=== PATIENT | female | born 1990 | race Caucasian/White ===

== ENCOUNTER 2016-05-29 20:54 | Emergency (ER) | payer MEDICAID ==
[2016-05-29 22:01] VITALS: BP 118/72
--- NOTE | 2016-05-29 22:03 | ER Document Report ---
ED Medical Screen (RME) - General Stated Complaint: VAGINAL BLEEDING Mode of Arrival: Ambulatory Information source: Patient Notes: 25 y/o F presents to ED c/o heavy vaginal bleeding over the last 3 days. States has hx of PCOS and had not had period for three months until 3 days ago when she began her period. Also reports hx of genital herpes and had onset of flare- up 3 days ago. Also states her sexual partner recently informed her he tested positive for gonorrhea but she has not been tested/treated yet. I have greeted and performed a rapid initial assessment of this patient. A comprehensive ED assessment and evaluation of the patient, analysis of test results and completion of the medical decision making process will be conducted by additional ED providers. TRAVEL OUTSIDE OF THE [place] IN LAST 30 DAYS: No - Related Data Allergies/Adverse Reactions: No Known Allergies Allergy (Unverified 09/30/15 19:48) Past Medical History Pulmonary Medical History: Reports: Hx Asthma Past Surgical History: Reports: Hx Appendectomy, Hx Cholecystectomy, Hx Tonsillectomy - Immunizations Hx Diphtheria, Pertussis, Tetanus Vaccination: Yes Physical Exam - General General appearance: Appears well, Alert In distress: None - Respiratory Respiratory status: No respiratory distress
[2016-05-30 01:55] LABS: ABSOLUTE EOSINOPHILS # (AUTO) 0.1 10^3/uL (0.0-0.6); ABSOLUTE LYMPHOCYTES (AUTO) 4.4 10^3/uL (0.5-4.7); ABSOLUTE MONOCYTES (AUTO) 0.8 10^3/uL (0.1-1.4); ABSOLUTE NEUT (AUTO) 6.5 10^3/uL (1.7-8.2); BASOPHILS % (AUTO) 0.3 % (0-2); EOSINOPHILS % (AUTO) 1.2 % (0-6); HEMATOCRIT 40.3 % (36.0-47.0); HGB HCT DIFFERENCE 1.7; LYMPHOCYTES % (AUTO) 37.2 % (13-45); MEAN CORPUSCULAR HEMOGLOBIN 29.9 pg (27.0-33.4); MEAN CORPUSCULAR HGB CONC 34.8 g/dL (32.0-36.0); MEAN CORPUSCULAR VOLUME 86 fl (80-97); MONOCYTES % (AUTO) 6.6 % (3-13); RED BLOOD COUNT 4.69 10^6/uL (3.72-5.28); RED CELL DISTRIBUTION WIDTH 13.3 % (11.5-14.0); SEGMENTED NEUTROPHILS % (AUTO) 54.7 % (42-78); WHITE BLOOD COUNT 11.9 10^3/uL (4.0-10.5)
[2016-05-30 02:08] LABS: ALANINE AMINOTRANSFERASE 39 U/L (9-52); ALBUMIN 4.1 g/dL (3.5-5.0); ALKALINE PHOSPHATASE 52 U/L (38-126); ANION GAP 12 (5-19); ASPARTATE AMINO TRANSFERASE 19 U/L (14-36); BILIRUBIN,TOTAL 0.4 mg/dL (0.2-1.3); BLOOD UREA NITROGEN 11 mg/dL (7-20); CALCIUM 9.9 mg/dL (8.4-10.2); CARBON DIOXIDE 26 mmol/L (22-30); CHLORIDE 105 mmol/L (98-107); CREATININE RESULT 0.74 mg/dL (0.52-1.25); GLUCOSE 131 mg/dL (75-110); POTASSIUM 4.1 mmol/L (3.6-5.0); SODIUM 142.9 mmol/L (137-145); TOTAL PROTEIN 7.7 g/dL (6.3-8.2)
[2016-05-30 02:18] LABS: APPEARANCE,URINE CLOUDY; BILIRUBIN,URINE NEGATIVE (NEGATIVE); GLUCOSE, URINE NEGATIVE (NEGATIVE); KETONES,URINE NEGATIVE (NEGATIVE); LEUKOCYTE ESTERASE,URINE LARGE (NEGATIVE); NITRITE,URINE NEGATIVE (NEGATIVE); PROTEIN,URINE 30 mg/dL (NEGATIVE); URINE SPECIFIC GRAVITY 1.032; UROBILINOGEN,URINE NEGATIVE mg/dL (<2.0)
--- NOTE | 2016-05-30 02:32 | ER Document Report ---
ED GI/ - General Chief Complaint: STD Exposure Stated Complaint: VAGINAL BLEEDING Time seen by provider: 02:21 Mode of Arrival: Ambulatory Information source: Patient Notes: 25-year-old female presents to ED for complaint of heavy vaginal bleeding over the last 3 days. She states she has a history of PCOS and has not had a period in 3 months until 3 days ago. Has hx of genital herpes with flare up started 3 days ago. States her sexual partners told her that he has gonorrhea and she has not been tested or treated. TRAVEL OUTSIDE OF THE [place] IN LAST 30 DAYS: No - HPI Patient complains to provider of: Pelvic pain, Vaginal bleeding, Vaginal discharge, Vaginal pain Onset: Other - 3 days ago Timing/Duration: Persistent Quality of pain: Achy, Burning Severity at maximum: Severe Severity in ED: Severe Pain Level: 5 Location: Pelvis, Vaginal Vaginal bleeding (Compared to normal period): Heavier, Passing clots LMP: 3 months ago and then started 3 days ago Associated symptoms: Nausea, Vaginal discharge, Other - Bodyaches pelvic pain and vaginal bleeding with vaginal pain Exacerbated by: Denies Relieved by: Denies Similar symptoms previously: Yes Recently seen / treated by doctor: No - Related Data Allergies/Adverse Reactions: No Known Allergies Allergy (Verified 05/29/16 22:01) Past Medical History - General Information source: Patient - Social History Smoking Status: Former Smoker Cigarette use (# per day): No Chew tobacco use (# tins/day): No Smoking Education Provided: No Frequency of alcohol use: None Drug Abuse: None Occupation: none Lives with: Alone - With children Family History: Arthritis, CAD, COPD, CVA, DM, Hyperlipidemia, Hypertension, Malignancy, Thyroid Disfunction Patient has suicidal ideation: No Patient has homicidal ideation: No - Past Medical History Cardiac Medical History: Reports: Hx Hypercholesterolemia Pulmonary Medical History: Reports: Hx Asthma, Hx Bronchitis EENT Medical History: Reports: None Neurological Medical History: Reports: None Endocrine Medical History: Reports: Hx Diabetes Mellitus Type 2 Renal/ Medical History: Reports: Hx Ovarian Cysts, Hx Pelvic Inflammatory Disease, Other - Genital herpes Malignancy Medical History: Reports: None GI Medical History: Reports: None Musculoskeltal Medical History: Reports None Skin Medical History: Reports None Psychiatric Medical History: Reports: Hx Anxiety, Hx Depression Traumatic Medical History: Reports: None Infectious Medical History: Reports: None Past Surgical History: Reports: Hx Adenoidectomy, Hx Appendectomy, Hx Cholecystectomy, Hx Myringotomy, Hx Oral Surgery - [place] teeth, Hx Tonsillectomy, Other - Foreign body removed from right eye - Immunizations Hx Diphtheria, Pertussis, Tetanus Vaccination: Yes Review of Systems - Review of Systems Constitutional: No symptoms reported EENT: No symptoms reported Cardiovascular: No symptoms reported Respiratory: No symptoms reported Gastrointestinal: No symptoms reported Genitourinary: No symptoms reported Female Genitourinary: Heavy/abnormal periods, Vaginal discharge, Vaginal bleeding, Other - Vaginal pain Musculoskeletal: No symptoms reported, Other - Bodyaches Skin: No symptoms reported Hematologic/Lymphatic: No symptoms reported Neurological/Psychological: No symptoms reported -: Yes All other systems reviewed and negative Physical Exam - Vital signs Vitals: Temp Pulse Resp BP Pulse Ox 98.1 F 72 18 118/72 99 05/29/16 21:57 05/29/16 21:57 05/29/16 21:57 05/29/16 21:57 05/29/16 21:57 Interpretation: Normal - General General appearance: Appears well, Alert - HEENT Head: Normocephalic, Atraumatic Eyes: Normal Pupils: PERRL Ears: Normal, Tragus tenderness Tympanic membrane: Normal Sinus: Normal Nasal: Normal Mouth/Lips: Normal Mucous membranes: Normal Pharynx: Normal Neck: Normal - Respiratory Respiratory status: No respiratory distress Chest status: Nontender Breath sounds: Normal Chest palpation: Normal - Cardiovascular Rhythm: Regular Heart sounds: Normal auscultation Murmur: No - Abdominal Inspection: Normal Distension: No distension Bowel sounds: Normal Tenderness: Nontender Organomegaly: No organomegaly - Genitourinary External exam: Normal. No: Lesions Speculum exam: Cervix closed, Vaginal discharge Vaginal bleeding: Mild Bimanuel exam: Normal - Back Back: Normal, Nontender - Extremities General upper extremity: Normal inspection, Nontender, Normal color, Normal ROM , Normal temperature General lower extremity: Normal inspection, Nontender, Normal color, Normal ROM , Normal temperature, Normal weight bearing. No: Dhara's sign - Neurological Neuro grossly intact: Yes Cognition: Normal Orientation: AAOx4 Marielle Coma Scale Eye Opening: Spontaneous Marielle Coma Scale Verbal: Oriented [place] Coma Scale Motor: Obeys Commands [place] Coma Scale Total: 15 Speech: Normal Motor strength normal: LUE, RUE, LLE, RLE Sensory: Normal - Psychological Associated symptoms: Normal affect, Normal mood - Skin Skin Temperature: Warm Skin Moisture: Dry Skin Color: Normal Course - Re-evaluation Re-evalutation: 05/30/16 03:38 Discussed results with patient patient treated with Rocephin and azithromycin and Macrobid. Patient discharged home with a prescription for Macrobid. Very minimal bleeding noted when I did her pelvic exam. 05/30/16 06:30 Attempted to call patient positive results of gonorrhea but her phone is disconnected. Patient had been treated already with Rocephin and azithromycin for the possibility of a positive gonorrhea as her boyfriend was tested positive. - Vital Signs Vital signs: Temp Pulse Resp BP Pulse Ox 98.1 F 72 18 118/72 99 05/29/16 21:57 05/29/16 21:57 05/29/16 21:57 05/29/16 21:57 05/29/16 21:57 - Laboratory Result Diagrams: 05/30/16 01:43 05/30/16 01:43 Laboratory results interpreted by me: 05/30/16 05/30/16 05/30/16 01:43 01:43 01:43 WBC 11.9 H Glucose 131 H Urine Protein 30 H Urine Blood LARGE H Ur Leukocyte Esterase LARGE H N.gonorrhoeae DNA (PCR) 05/30/16 02:39 WBC Glucose Urine Protein Urine Blood Ur Leukocyte Esterase N.gonorrhoeae DNA (PCR) DETECTED H Discharge - Discharge Clinical Impression: Vaginal pain Vaginitis Qualifiers: Chronicity: acute Qualified Code(s): N76.0 - Acute vaginitis UTI (urinary tract infection) Qualifiers: Urinary tract infection type: site unspecified Hematuria presence: with hematuria Qualified Code(s): N39.0 - Urinary tract infection, site not specified Condition: Stable Disposition: HOME, SELF-CARE Additional Instructions: URINARY TRACT INFECTION: Your evaluation indicates that you have a urinary tract infection. This is due to germs growing in the bladder. This is a common problem. This infection usually responds quickly to antibiotics. Your antibiotic should be taken exactly as prescribed. Drink plenty of fluids -- three to four quarts a day. Occasionally, a bladder anesthetic will be prescribed to help stop the feeling of urgency until the antibiotic has a chance to clear the infection. This may cause your urine to be dark orange. Certain urine infections require a culture. If the doctor obtained a culture, the results will be back in two days. You should call to see if a change in treatment is needed. A repeat urinalysis after you finish treatment is often recommended. The physician will let you know if further testing is required. Call the doctor if you develop fever, chills, flank pain, inability to urinate, or blood in the urine. VAGINITIS: Your exam shows that you have vaginitis, a vaginal infection. The infection can be caused by a many different organisms, including trichomonas or Gardnerella. The usual symptoms are vaginal irritation and discharge. The treatment is usually antibiotics such as Flagyl. Laboratory tests can determine which germ is responsible. Use the medication as prescribed. Because this infection can be transmitted sexually, your sexual partner may need to be checked and treated also. If your physician has not discussed this with you, please check before resuming sexual relations. If a culture shows gonorrhea or chlamydia, the infection must be reported to the health department. Call the doctor if you develop pelvic pain, fever, or problems with urination, or if you don't improve as expected. Rocephin You have been given an injection of an antibiotic called Rocephin ( ceftriaxone). Sometimes the injection must be combined with antibiotic pills. For some infections, such as an uncomplicated ear infection, Rocephin provides all the antibiotic that's needed. The antibiotic will be in your body for about two days. For serious infections, we usually repeat doses of Rocephin daily. Side effects are very unusual following a shot. Women may develop vaginal yeast infections, and babies can get yeast (thrush) in the mouth following the use of antibiotics. Contact your physician if you have symptoms with this medication. Allergy to this antibiotic can result in hives, wheezing, faintness, or itching. If symptoms of allergy occur, call the doctor at once. AZITHROMYCIN: Azithromycin (Zithromax) is a broad spectrum antibiotic in the same class as erythromycin. It can treat a variety of bacterial infections, but is most frequently used for respiratory infections. Azithromycin is extremely long-lasting. It accumulates in body tissues and continues to kill bacteria for many days. In order to improve absorption, Azithromycin should be taken at least one hour before or two hours after a meal. It does not have the same strong tendency to upset the stomach as erythromycin and is usually very well tolerated. Patients who have had a rash or other true allergic reactions to erythromycin should not take this medication. Call if you develop gastrointestinal distress, severe diarrhea, rash, hives, itching, or shortness of breath. NITROFURANTOIN (MACRODANTIN, MACROBID): You have received a prescription for nitrofurantoin (Macrodantin). This antibiotic is used for urinary tract infections. Women who are or nursing should notify the physician before taking this medicine. If you have ever had a problem caused by this medication in the past, be sure the physician is aware of it. Common side effects of this medicine include nausea, vomiting, or decreased appetite. Notify your physician if these side effects become severe. Immediately stop this medicine and call the physician if you develop cough , shortness of breath, chest pain, weakness, jaundice (yellow color of the skin and whites of the eyes), or a skin rash. FOLLOW-UP CARE: If you have been referred to a physician for follow-up care, call the physician s office for an appointment as you were instructed or within the next two days. If you experience worsening or a significant change in your symptoms, notify the physician immediately or return to the Emergency Department at any time for re-evaluation. Prescriptions: Nitrofurantoin/Nitrofuran Mac [Macrobid 100 mg Capsule] 1 tab PO BID #20 capsule Forms: Return to School Referrals: INDIO MARTINS MD [Primary Care Provider] - Follow up as needed
[2016-05-30] MEDS ORDERED: AZITHROMYCIN 250 MG TABLET PO ONE (02:42)
[2016-05-30] MEDS ORDERED: LIDOCAINE 1% INJ-PF (10 MG/ML) 30 ML SDV INJ ONE (02:42)
[2016-05-30] MEDS ORDERED: CEFTRIAXONE INJ 250 MG VIAL IM ONE (02:42)
[2016-05-30] MEDS ORDERED: IBUPROFEN 800 MG TABLET PO ONE (02:42)
[2016-05-30] MEDS ORDERED: NITROFURANTOIN MONOHYD/M-CRYST 100 MG CAPSULE PO ONE (03:30)
[2016-05-30 04:17] LABS: CHLAM PCR NOT DETECTED (NOT DETECT)
== END 2016-05-30 03:46 | disposition home or self-care (01) ==
LOC: ER 20:54
DX: A54.02 Gonococcal vulvovaginitis, unspecified (principal); N39.0 Urinary tract infection, site not specified; R31.9 Hematuria, unspecified; E28.2 Polycystic ovarian syndrome; R10.2 Pelvic and perineal pain; A60.00 Herpesviral infection of urogenital system, unspecified; Z87.891 Personal history of nicotine dependence; J45.909 Unspecified asthma, uncomplicated; E11.9 Type 2 diabetes mellitus without complications
CPT/HCPCS: 99284; 96372; 36415; 87086; 87210; 85025; 81025; 87088; 80053; 81001; 87491; 87591; Q0144; J3490 ×2; J0696

== ENCOUNTER → 2016-09-14 | Outpatient (CLI) | payer MEDICAID ==
--- NOTE | 2016-09-14 20:31 | RADIOLOGY REPORT (SQ) ---
EXAM DESCRIPTION: ACUTE ABDOMEN SERIES COMPLETED DATE/TIME: 09/14/2016 8:10 pm REASON FOR STUDY: Generalized abdominal pain R10.84 GENERALIZED ABDOMINAL PAIN R10.84 GENERALIZED ABDOMINAL PAIN R10.84 GENERALIZED ABDOMINAL PAIN COMPARISON: None. NUMBER OF VIEWS: Three views. TECHNIQUE: Frontal chest, supine abdomen and upright/decubitus abdomen radiographic images acquired. LIMITATIONS: None. FINDINGS: CHEST: Lungs clear of infiltrates. FREE AIR: None. No abnormal gas collections. BOWEL GAS PATTERN: Nonobstructive pattern. No dilated loops or air fluid levels. CALCIFICATIONS: No suspicious calcifications. HARDWARE: Surgical clips are identified in the right upper quadrant SOFT TISSUES: No gross mass or suggestion of organomegaly. BONES: No acute fracture. No worrisome bone lesions. OTHER: No other significant finding. IMPRESSION: NO RADIOGRAPHIC EVIDENCE FOR ACUTE ABDOMINAL DISEASE. TECHNICAL DOCUMENTATION: JOB ID: [id number] [employer]- All Rights Reserved
== END ==
LOC: RAD 19:18
PROVIDERS: ATTEND Nurse Practitioner Acute Care
DX: R10.84 Generalized abdominal pain (principal)
CPT/HCPCS: 74022

== ENCOUNTER → 2016-09-14 | Outpatient (CLI) | payer MEDICAID ==
[2016-09-14 20:04] LABS: ABSOLUTE BASOPHILS # (AUTO) 0.1 10^3/uL (0.0-0.2); ABSOLUTE EOSINOPHILS # (AUTO) 0.1 10^3/uL (0.0-0.6); ABSOLUTE LYMPHOCYTES (AUTO) 4.1 10^3/uL (0.5-4.7); ABSOLUTE NEUT (AUTO) 9.9 10^3/uL (1.7-8.2); BASOPHILS % (AUTO) 0.9 % (0-2); EOSINOPHILS % (AUTO) 0.4 % (0-6); HEMATOCRIT 47.3 % (36.0-47.0); HEMOGLOBIN 15.7 g/dL (12.0-15.5); HGB HCT DIFFERENCE -0.2; LYMPHOCYTES % (AUTO) 26.9 % (13-45); MEAN CORPUSCULAR HEMOGLOBIN 28.8 pg (27.0-33.4); MEAN CORPUSCULAR HGB CONC 33.1 g/dL (32.0-36.0); MEAN CORPUSCULAR VOLUME 87 fl (80-97); MONOCYTES % (AUTO) 6.5 % (3-13); RED BLOOD COUNT 5.44 10^6/uL (3.72-5.28); RED CELL DISTRIBUTION WIDTH 14.7 % (11.5-14.0); SEGMENTED NEUTROPHILS % (AUTO) 65.3 % (42-78); WHITE BLOOD COUNT 15.1 10^3/uL (4.0-10.5)
[2016-09-14 20:05] LABS: APPEARANCE,URINE CLOUDY; BILIRUBIN,URINE NEGATIVE (NEGATIVE); GLUCOSE, URINE NEGATIVE (NEGATIVE); KETONES,URINE 20 mg/dL (NEGATIVE); LEUKOCYTE ESTERASE,URINE NEGATIVE (NEGATIVE); NITRITE,URINE NEGATIVE (NEGATIVE); PROTEIN,URINE NEGATIVE (NEGATIVE); URINE SPECIFIC GRAVITY 1.019; UROBILINOGEN,URINE NEGATIVE mg/dL (<2.0)
[2016-09-14 20:19] LABS: ALANINE AMINOTRANSFERASE 40 U/L (9-52); ALKALINE PHOSPHATASE 57 U/L (38-126); ANION GAP 16 (5-19); ASPARTATE AMINO TRANSFERASE 23 U/L (14-36); BILIRUBIN,DIRECT 0.3 mg/dL (0.0-0.4); BLOOD UREA NITROGEN 10 mg/dL (7-20); CALCIUM 10.3 mg/dL (8.4-10.2); CARBON DIOXIDE 24 mmol/L (22-30); CHLORIDE 100 mmol/L (98-107); CREATININE RESULT 0.83 mg/dL (0.52-1.25); GLUCOSE 116 mg/dL (75-110); LIPASE 60.2 U/L (23-300); POTASSIUM 4.6 mmol/L (3.6-5.0); TOTAL PROTEIN 9.1 g/dL (6.3-8.2)
== END ==
LOC: LAB 19:36
PROVIDERS: ATTEND Nurse Practitioner Acute Care
DX: R10.84 Generalized abdominal pain (principal)
CPT/HCPCS: 36415; 80053; 81001; 83690; 85025; 87086

== ENCOUNTER → 2016-10-03 | Outpatient (CLI) | payer MEDICAID ==
[2016-10-03 11:48] LABS: ABSOLUTE BASOPHILS # (AUTO) 0.1 10^3/uL (0.0-0.2); ABSOLUTE LYMPHOCYTES (AUTO) 2.9 10^3/uL (0.5-4.7); ABSOLUTE MONOCYTES (AUTO) 0.6 10^3/uL (0.1-1.4); ABSOLUTE NEUT (AUTO) 5.7 10^3/uL (1.7-8.2); EOSINOPHILS % (AUTO) 0.5 % (0-6); HEMATOCRIT 42.7 % (36.0-47.0); HEMOGLOBIN 14.3 g/dL (12.0-15.5); HGB HCT DIFFERENCE 0.2; LYMPHOCYTES % (AUTO) 30.8 % (13-45); MEAN CORPUSCULAR HGB CONC 33.4 g/dL (32.0-36.0); MEAN CORPUSCULAR VOLUME 87 fl (80-97); RED BLOOD COUNT 4.92 10^6/uL (3.72-5.28); RED CELL DISTRIBUTION WIDTH 14.3 % (11.5-14.0); SEGMENTED NEUTROPHILS % (AUTO) 61.7 % (42-78); WHITE BLOOD COUNT 9.3 10^3/uL (4.0-10.5)
[2016-10-03 12:10] LABS: ALANINE AMINOTRANSFERASE 56 U/L (9-52); ALBUMIN 4.4 g/dL (3.5-5.0); ALKALINE PHOSPHATASE 51 U/L (38-126); ANION GAP 12 (5-19); ASPARTATE AMINO TRANSFERASE 28 U/L (14-36); BILIRUBIN,DIRECT 0.3 mg/dL (0.0-0.4); BILIRUBIN,TOTAL 0.7 mg/dL (0.2-1.3); BLOOD UREA NITROGEN 5 mg/dL (7-20); CALCIUM 9.5 mg/dL (8.4-10.2); CARBON DIOXIDE 26 mmol/L (22-30); CHLORIDE 103 mmol/L (98-107); CREATININE RESULT 0.76 mg/dL (0.52-1.25); GLUCOSE 115 mg/dL (75-110); LIPASE 49.6 U/L (23-300); POTASSIUM 3.8 mmol/L (3.6-5.0); SODIUM 140.5 mmol/L (137-145); TOTAL PROTEIN 7.9 g/dL (6.3-8.2)
[2016-10-03 13:32] LABS: CHLAM PCR NOT DETECTED (NOT DETECT)
== END ==
LOC: LAB 11:38
PROVIDERS: ATTEND Emergency Medicine
DX: M54.5 Low back pain (principal); R10.84 Generalized abdominal pain; R30.0 Dysuria; Z86.19 Personal history of other infectious and parasitic diseases
CPT/HCPCS: 36415; 80053; 83690; 85025; 87086; 87491; 87591

== ENCOUNTER 2017-05-05 22:39 | Emergency (ER) | payer MEDICAID ==
[2017-05-06 02:29] LABS: APPEARANCE,URINE CLOUDY; BILIRUBIN,URINE NEGATIVE (NEGATIVE); COLOR,URINE YELLOW; GLUCOSE, URINE NEGATIVE (NEGATIVE); KETONES,URINE NEGATIVE (NEGATIVE); LEUKOCYTE ESTERASE,URINE LARGE (NEGATIVE); NITRITE,URINE NEGATIVE (NEGATIVE); PROTEIN,URINE NEGATIVE (NEGATIVE); URINE SPECIFIC GRAVITY 1.015; UROBILINOGEN,URINE NEGATIVE mg/dL (<2.0)
--- NOTE | 2017-05-06 02:47 | ER Document Report ---
ED GI/ - General Chief Complaint: Vaginal Pain Stated Complaint: SWOLLEN VAGINAL AREA, LARGE PURPLE SPOT Time Seen by Provider: 05/06/17 02:34 Notes: Patient is a 26-year-old female comes emergency department for chief complaint of sharp pain in her right pelvic area and groin for the past day, pain is intermittent, she denies flank pain, she denies dysuria, vaginal discharge, vaginal bleeding. She denies fever or chills, nausea or vomiting. Past medical history of PCOS, appendectomy, cholecystectomy. She takes no daily medications. She is sexually active with her boyfriend. TRAVEL OUTSIDE OF THE [place] IN LAST 30 DAYS: No - Related Data Allergies/Adverse Reactions: No Known Allergies Allergy (Verified 05/29/16 22:01) Past Medical History - General Information source: Patient - Social History Smoking Status: Current Some Day Smoker Frequency of alcohol use: Occasional Drug Abuse: None Lives with: Family Family History: Arthritis, CAD, COPD, CVA, DM, Hyperlipidemia, Hypertension, Malignancy, Thyroid Disfunction - Past Medical History Cardiac Medical History: Reports: Hx Hypercholesterolemia Pulmonary Medical History: Reports: Hx Asthma, Hx Bronchitis Endocrine Medical History: Reports: Hx Diabetes Mellitus Type 2 Renal/ Medical History: Reports: Hx Ovarian Cysts, Hx Pelvic Inflammatory Disease. Denies: Hx Peritoneal Dialysis Psychiatric Medical History: Reports: Hx Anxiety, Hx Depression Past Surgical History: Reports: Hx Adenoidectomy, Hx Appendectomy, Hx Cholecystectomy, Hx Myringotomy, Hx Oral Surgery - [place] teeth, Hx Tonsillectomy, Other - Foreign body removed from right eye - Immunizations Hx Diphtheria, Pertussis, Tetanus Vaccination: Yes Review of Systems - Review of Systems Constitutional: No symptoms reported EENT: No symptoms reported Cardiovascular: No symptoms reported Respiratory: No symptoms reported Gastrointestinal: See HPI Genitourinary: See HPI Female Genitourinary: See HPI Musculoskeletal: No symptoms reported Skin: See HPI Hematologic/Lymphatic: No symptoms reported Neurological/Psychological: No symptoms reported Physical Exam - Vital signs Vitals: Temp Pulse Resp BP Pulse Ox 99.0 F 81 18 129/75 H 100 05/05/17 23:51 05/05/17 23:51 05/05/17 23:51 05/05/17 23:51 05/05/17 23:51 Interpretation: Normal - General General appearance: Appears well, Alert In distress: None - HEENT Head: Normocephalic, Atraumatic Eyes: Normal Pupils: PERRL - Respiratory Respiratory status: No respiratory distress Chest status: Nontender Breath sounds: Normal Chest palpation: Normal - Cardiovascular Rhythm: Regular. No: Tachycardia Heart sounds: Normal auscultation, S1 appreciated, S2 appreciated Murmur: No - Abdominal Inspection: Normal Distension: No distension Bowel sounds: Normal Tenderness: Tender - Mild suprapubic tenderness, otherwise unremarkable. No: Guarding - Genitourinary External exam: Other - Over the labia majora there is a small area of erythema with mild tenderness, no induration or fluctuance, no swelling, no nearby adenopathy, external exam otherwise is normal Speculum exam: Cervix closed. No: Cervix open, Vaginal discharge Vaginal bleeding: None Bimanuel exam: No: Cervical motion tender Notes: BARRINGTON Mckenna present during exam - Back Back: Normal, Nontender. No: Tender, CVA tenderness - Extremities General upper extremity: Normal inspection, Nontender, Normal color, Normal ROM , Normal temperature General lower extremity: Normal inspection, Nontender, Normal color, Normal ROM , Normal temperature, Normal weight bearing. 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 HCG is negative. Wet mount with strain results, I called lab and they state that they were only a few bacteria and a few squamous epithelial so they put them as not reportable. There were some white blood cells. Pelvic examination is very unremarkable. Abdominal exam is unremarkable with mild suprapubic tenderness. Patient requesting ultrasound and this was performed but this shows no acute abnormality including no ovarian cyst or torsion. Patient was relieved about this. Provided her with a copy of the report. Gonorrhea and Chlamydia negative. External exam shows a small area of erythema and mild tenderness with no induration or fluctuance, appears to be a plugged hair follicle with early infection. Discussed with patient, area and the urinary tract will be treated with doxycycline, discussed follow-up and return precautions, patient states understanding and agreement. - Vital Signs Vital signs: Temp Pulse Resp BP Pulse Ox 98.9 F 76 20 130/70 H 100 05/06/17 05:30 05/06/17 05:30 05/06/17 05:30 05/06/17 05:30 05/06/17 05:30 - Laboratory Laboratory results interpreted by me: 05/06/17 02:04 Ur Leukocyte Esterase LARGE H Discharge - Discharge Clinical Impression: Pelvic pain, Skin infection Disposition: HOME, SELF-CARE Additional Instructions: Examination shows a small infected skin area without abscess, probably a plugged hair follicle, you can apply warm compress to the area, take doxycycline as prescribed. This antibiotic should also treat what appears to be urinary tract infection and likely bladder spasms. Your ultrasound and remaining workup did not show any concerning abnormalities. Follow-up with primary care. Return for any concerning or worsening symptoms including vomiting, fever of 100.4 or greater, severe pain, or any other concerning symptoms. Prescriptions: Doxycycline Hyclate 100 mg PO BID #14 capsule Referrals: JILLIAN OCAMPO DO [Primary Care Provider] - Follow up as needed
[2017-05-06 03:12] LABS: WBCS (WET MOUNT) 1+ WBCS SEEN
[2017-05-06 04:38] LABS: CHLAM PCR NOT DETECTED (NOT DETECT); GON PCR NOT DETECTED (NOT DETECT)
--- NOTE | 2017-05-06 05:03 | RADIOLOGY REPORT (SQ) ---
EXAM DESCRIPTION: U/S NON OB PEL TV W/DOPPLER CLINICAL HISTORY: 26 years Female, sharp pelvic pain, hx cysts COMPARISON: 06/20/2015 TECHNIQUE: Complete pelvic ultrasound with transvaginal imaging. Limited color and spectral Doppler imaging of the ovaries. FINDINGS: The uterus measures 8.3 x 5.3 x 4.2 cm. The endometrium measures 1.1 cm. Cervical length of 2.2 cm. No abnormality of the myometrium. Trace free pelvic fluid. The right ovary measures 2.9 x 2.0 x 2.2 cm. Left ovary measures 2.3 x 2.3 x 2.6 cm. Limited color and spectral Doppler imaging demonstrates flow within the ovaries bilaterally. IMPRESSION: 1. Trace amount of free pelvic fluid is likely physiologic.
[2017-05-06] MEDS ORDERED: DOXYCYCLINE HYCLATE 100 MG TABLET PO ONE (05:17)
[2017-05-06 06:03] VITALS: BP 130/70
== END 2017-05-06 05:30 | disposition home or self-care (01) ==
LOC: ER 22:39
DX: L08.9 Local infection of the skin and subcutaneous tissue, unspecified (principal); R10.2 Pelvic and perineal pain; F17.200 Nicotine dependence, unspecified, uncomplicated
CPT/HCPCS: 99283; 87210; 81025; 81001; 87491; 87591; 76830; 93976; J3490

== ENCOUNTER 2017-08-30 23:11 | Emergency (ER) | payer MEDICAID ==
[2017-08-31 00:12] LABS: ABSOLUTE BASOPHILS # (AUTO) 0.1 10^3/uL (0.0-0.2); ABSOLUTE EOSINOPHILS # (AUTO) 0.1 10^3/uL (0.0-0.6); ABSOLUTE LYMPHOCYTES (AUTO) 4.4 10^3/uL (0.5-4.7); ABSOLUTE MONOCYTES (AUTO) 0.8 10^3/uL (0.1-1.4); ABSOLUTE NEUT (AUTO) 6.5 10^3/uL (1.7-8.2); BASOPHILS % (AUTO) 0.7 % (0-2); HEMATOCRIT 40.9 % (36.0-47.0); HEMOGLOBIN 14.3 g/dL (12.0-15.5); LYMPHOCYTES % (AUTO) 36.8 % (13-45); MEAN CORPUSCULAR HEMOGLOBIN 31.3 pg (27.0-33.4); MEAN CORPUSCULAR HGB CONC 34.9 g/dL (32.0-36.0); MEAN CORPUSCULAR VOLUME 90 fl (80-97); MONOCYTES % (AUTO) 6.8 % (3-13); PLATELET COUNT 357 10^3/uL (150-450); RED BLOOD COUNT 4.56 10^6/uL (3.72-5.28); SEGMENTED NEUTROPHILS % (AUTO) 54.7 % (42-78); TOTAL CELLS COUNTED % (AUTO) 100 %; WHITE BLOOD COUNT 11.9 10^3/uL (4.0-10.5)
[2017-08-31 00:19] LABS: APPEARANCE,URINE CLOUDY; BILIRUBIN,URINE NEGATIVE (NEGATIVE); COLOR,URINE YELLOW; GLUCOSE, URINE NEGATIVE (NEGATIVE); KETONES,URINE NEGATIVE (NEGATIVE); LEUKOCYTE ESTERASE,URINE LARGE (NEGATIVE); NITRITE,URINE NEGATIVE (NEGATIVE); PROTEIN,URINE NEGATIVE (NEGATIVE); URINE SPECIFIC GRAVITY 1.013; UROBILINOGEN,URINE NEGATIVE mg/dL (<2.0)
[2017-08-31 00:31] LABS: ALANINE AMINOTRANSFERASE 27 U/L (9-52); ALBUMIN 4.3 g/dL (3.5-5.0); ALKALINE PHOSPHATASE 37 U/L (38-126); ANION GAP 13 (5-19); ASPARTATE AMINO TRANSFERASE 17 U/L (14-36); BILIRUBIN,DIRECT 0.2 mg/dL (0.0-0.4); BILIRUBIN,TOTAL 0.2 mg/dL (0.2-1.3); BLOOD UREA NITROGEN 8 mg/dL (7-20); CALCIUM 9.8 mg/dL (8.4-10.2); CARBON DIOXIDE 26 mmol/L (22-30); CHLORIDE 102 mmol/L (98-107); GLUCOSE 107 mg/dL (75-110); LIPASE 133.5 U/L (23-300); POTASSIUM 3.9 mmol/L (3.6-5.0); SODIUM 141.1 mmol/L (137-145); TOTAL PROTEIN 7.5 g/dL (6.3-8.2)
--- NOTE | 2017-08-31 00:33 | ER Document Report ---
ED General - General Chief Complaint: Lower Abdominal Pain/ Stated Complaint: ABDOMINAL PAIN Time Seen by Provider: 08/31/17 00:33 Mode of Arrival: Ambulatory Information source: Patient Notes: 27-year-old lady who is with last menstrual period 4 weeks ago today for evaluation of few complaints. Her main complaint is rectal pain as well as bleeding with bowel movements. Patient also has lower abdominal distention and bloating. Patient denies any vaginal complaints such as bleeding or discharge. Patient denies any hematuria or dysuria. Patient is concerned that she might have early miscarriage or possible ectopic . No prior history of ectopic . Pain is localized to the bilateral lower quadrants, achy, described as bloating, severity of symptoms is 4 out of 10. TRAVEL OUTSIDE OF THE [place] IN LAST 30 DAYS: No - Related Data Allergies/Adverse Reactions: No Known Allergies Allergy (Verified 05/29/16 22:01) Past Medical History - General Information source: Patient - Social History Smoking Status: Former Smoker Chew tobacco use (# tins/day): No Drug Abuse: None Family History: Arthritis, CAD, COPD, CVA, DM, Hyperlipidemia, Hypertension, Malignancy, Thyroid Disfunction Patient has suicidal ideation: No Patient has homicidal ideation: No - Past Medical History Cardiac Medical History: Reports: Hx Hypercholesterolemia Pulmonary Medical History: Reports: Hx Asthma, Hx Bronchitis Endocrine Medical History: Reports: Hx Diabetes Mellitus Type 2 Renal/ Medical History: Reports: Hx Ovarian Cysts, Hx Pelvic Inflammatory Disease. Denies: Hx Peritoneal Dialysis Psychiatric Medical History: Reports: Hx Anxiety, Hx Depression Past Surgical History: Reports: Hx Adenoidectomy, Hx Appendectomy, Hx Cholecystectomy, Hx Myringotomy, Hx Oral Surgery - [place] teeth, Hx Tonsillectomy, Other - Foreign body removed from right eye - Immunizations Hx Diphtheria, Pertussis, Tetanus Vaccination: Yes Review of Systems - Review of Systems Notes: REVIEW OF SYSTEMS: CONSTITUTIONAL: -fevers, -chills EENT: -eye pain, -difficulty swallowing, -nasal congestion CARDIOVASCULAR: -chest pain, -syncope. RESPIRATORY: -cough, -SOB GASTROINTESTINAL: + Abdominal pain, -nausea, -vomiting, -diarrhea, + rectal bleeding GENITOURINARY: -dysuria, -hematuria MUSCULOSKELETAL: -back pain, -neck pain SKIN: -rash or skin lesions. HEMATOLOGIC: -easy bruising or bleeding. LYMPHATIC: -swollen, enlarged glands. NEUROLOGICAL: -altered mental status or loss of consciousness, -headache, - neurologic symptoms PSYCHIATRIC: -anxiety, -depression. ALL OTHER SYSTEMS REVIEWED AND NEGATIVE. Physical Exam - Vital signs Vitals: Temp Pulse Resp BP Pulse Ox 98.9 F 88 18 126/78 H 100 08/30/17 23:19 08/30/17 23:19 08/30/17 23:19 08/30/17 23:19 08/30/17 23:19 - Notes Notes: Reviewed vital signs and nursing note as charted by RN. CONSTITUTIONAL: Alert and oriented and responds appropriately to questions HEAD: Normocephalic; atraumatic EYES: PERRL; Conjunctivae clear, sclerae non-icteric ENT: normal nose; no rhinorrhea; moist mucous membranes; pharynx without lesions noted NECK: Supple without meningismus; non-tender; no cervical lymphadenopathy, no masses CARD: Regular rate and rhythm; no murmurs, no clicks, no rubs, no gallops; symmetric distal pulses RESP: Normal chest excursion without splinting or tachypnea; breath sounds clear and equal bilaterally ABD/GI: Normal bowel sounds; non-distended; soft, mild tenderness to palpation in suprapubic area without any rebound or guarding Rectal: Patient has 0.5 cm external hemorrhoid localized to the 12 o'clock position of the rectum, no active bleeding, tender to touch, no fissure, stool is brown, heme-negative BACK: The back appears normal and is non-tender to palpation EXT: Normal ROM in all joints; non-tender to palpation; no cyanosis, no effusions, no edema SKIN: Normal color for age and race; warm; dry; good turgor; capillary refill < 2 seconds; no acute lesions noted NEURO: .Cranial nerves 3-12 intact. Motor strength 5/5 bilaterally. Sensation intact to touch bilaterally. No pronator drift. Finger to nose intact bilaterally PSYCH: The patient's mood and manner are appropriate. Grooming and personal hygiene are appropriate. Course - Re-evaluation Re-evalutation: 27 here for evaluation of rectal pain as well as bleeding Patient also has new diagnosis of , denies any vaginal bleeding or vaginal discharge Differential diagnoses includes intra-abdominal infection, acute cystitis, ectopic , hemorrhoids, anemia, pancreatitis We will obtain basic lab work including CBC, CMP, lipase, urinalysis, beta-hCG Rectal exam did not reveal any heme positive stools or melena, therefore no suspicion for GI bleeding We will obtain ultrasound of her pelvis to rule out acute ectopic 08/31/17 04:52 Urinalysis has acute cystitis, we will start patient on Macrobid Ultrasound did not reveal any evidence of acute ectopic , differential at this time includes early or possible ectopic, therefore patient will need follow-up with [facility] for repeat ultrasound as well as blood work We will start patient on Preparation H for her hemorrhoids as well as recommended stool softeners and sitz bath No evidence of anemia, therefore no suspicion for GI bleeding Recommended to stop her weight loss medications in order to avoid teratogenic effects on her fetus Patient agree with disposition planning, discharge home - Vital Signs Vital signs: Temp Pulse Resp BP Pulse Ox 98.9 F 88 18 126/78 H 100 08/30/17 23:19 08/30/17 23:19 08/30/17 23:19 08/30/17 23:19 08/30/17 23:19 - Laboratory Result Diagrams: 08/30/17 23:45 08/30/17 23:45 Laboratory results interpreted by me: 08/30/17 08/30/17 08/30/17 23:45 23:45 23:45 WBC 11.9 H Alkaline Phosphatase 37 L Beta HCG, Quant 551.15 H Urine Blood SMALL H Ur Leukocyte Esterase LARGE H - Diagnostic Test Radiology reviewed: Image reviewed Radiology results interpreted by me: 08/31/17 04:52 Ultrasound did not reveal any evidence of ectopic or intrauterine implantation Differential includes early or possible ectopic Discharge - Discharge Clinical Impression: Qualifiers: Weeks of gestation: less than 8 weeks Qualified Code(s): Z3A.01 - Less than 8 weeks gestation of Acute cystitis Qualifiers: Hematuria presence: without hematuria Qualified Code(s): N30.00 - Acute cystitis without hematuria Hemorrhoids Qualifiers: Hemorrhoid type: unspecified Qualified Code(s): K64.9 - Unspecified hemorrhoids Condition: Stable Additional Instructions: You have been diagnosed with early , please follow-up in 24 hours with [facility] doctors for repeat ultrasound as well as blood work If you are unable to schedule appointment, please come back to emergency room and we can repeat the diagnostic studies as well as blood work for you Please take antibiotics as prescribed for urinary tract infection Please take stool softeners as well as Preparation H for hemorrhoids Please come back if it worsening fevers, chills, nausea vomiting, worsening abdominal pain, vaginal bleeding or chest pain Prescriptions: Docusate Sodium 100 mg PO DAILY 30 Days #30 capsule Nitrofurantoin Monohyd/M-Cryst [Macrobid 100 mg Capsule] 1 tab PO BID #20 capsule Phenylephrine HCl/[place] Butter [Preparation H Suppository] 1 each RC DAILY 10 Days #20 supp.rect Referrals: DARYN MOSQUEDA MD [ACTIVE STAFF] - 09/02/17
--- NOTE | 2017-08-31 04:06 | RADIOLOGY REPORT (SQ) ---
EXAM DESCRIPTION: US TRANSVAGINAL CLINICAL HISTORY: 27 years Female, ectopic Comparison: None. TECHNIQUE: Transvaginal. LIMITATIONS: None. FINDINGS: No definite intrauterine is identified. There is an indeterminate intrauterine cystic fluid collection measuring up to 0.6 cm; if this represents an early viable gestational sac, it would correspond with a gestational age of five weeks and two days. No yolk sac is identified. No pole. No cardiac activity. Ovaries not visualized, 8.6 cm uterus, 3.2-cm cervical length, and no free fluid. IMPRESSION: No definite intrauterine identified. Differential diagnosis includes early viable intrauterine gestational sac, gestational loss, and occult ectopic gestation. Recommend 48-72 hour laboratory/sonographic surveillance.
[2017-08-31 05:21] VITALS: BP 117/75
== END 2017-08-31 05:19 | disposition home or self-care (01) ==
LOC: ER 23:11
DX: O23.11 Infections of bladder in pregnancy, first trimester (principal); O22.41 Hemorrhoids in pregnancy, first trimester; O99.511 Diseases of the respiratory system complicating pregnancy, first trimester; J45.909 Unspecified asthma, uncomplicated; O24.111 Pre-existing type 2 diabetes mellitus, in pregnancy, first trimester; E11.9 Type 2 diabetes mellitus without complications; O26.891 Other specified pregnancy related conditions, first trimester; R14.0 Abdominal distension (gaseous); R10.31 Right lower quadrant pain; R10.32 Left lower quadrant pain; O99.611 Diseases of the digestive system complicating pregnancy, first trimester; K62.5 Hemorrhage of anus and rectum; Z3A.01 Less than 8 weeks gestation of pregnancy; Z87.891 Personal history of nicotine dependence
CPT/HCPCS: 36415; 76817; 80053; 81001; 82272; 83690; 84702; 85025; 93976; 99284

== ENCOUNTER 2017-09-01 19:26 | Emergency (ER) | payer MEDICAID ==
--- NOTE | 2017-09-01 20:15 | ER Document Report ---
ED Medical Screen (RME) - General Chief Complaint: Vaginal Bleeding Stated Complaint: VAGINAL BLEEDING Time Seen by Provider: 09/01/17 20:04 Notes: RAPID MEDICAL EVALUATION DISCLOSURE I have seen this patient as part of a Rapid Medical Evaluation and, if applicable, placed any initially appropriate orders. The patient will be seen and fully evaluated, including a full history and physical exam, by a provider ( in Main ED or Fast Track) when a room becomes available. 27-year-old female seen here recently in the emergency department for [employer] complaints back here with complaints of vaginal bleeding that started last night and has progressively worsened. She has had some lower abdominal cramping as well. She passed some tissue approximately 2 hours ago (has a picture of it on her cell phone). She had an ultrasound and hCG drawn at her last visit. She was also diagnosed with a UTI and prescribed Macrobid which she has filled but as of the time of this writing has not yet taken the first dose. EXAM Minimal left greater than right lower quadrant TTP TRAVEL OUTSIDE OF THE [place] IN LAST 30 DAYS: No - Related Data Allergies/Adverse Reactions: No Known Allergies Allergy (Verified 05/29/16 22:01) Past Medical History - General Last Menstrual Period: 07/15/17 - Social History Chew tobacco use (# tins/day): No Frequency of alcohol use: None Drug Abuse: None - Past Medical History Cardiac Medical History: Reports: Hx Hypercholesterolemia Pulmonary Medical History: Reports: Hx Asthma, Hx Bronchitis Endocrine Medical History: Reports: Hx Diabetes Mellitus Type 2 Renal/ Medical History: Reports: Hx Ovarian Cysts, Hx Pelvic Inflammatory Disease. Denies: Hx Peritoneal Dialysis Psychiatric Medical History: Reports: Hx Anxiety, Hx Depression Past Surgical History: Reports: Hx Adenoidectomy, Hx Appendectomy, Hx Cholecystectomy, Hx Myringotomy, Hx Oral Surgery - [place] teeth, Hx Tonsillectomy, Other - Foreign body removed from right eye - Immunizations Hx Diphtheria, Pertussis, Tetanus Vaccination: Yes Physical Exam - Vital signs Vitals: Temp Pulse BP Pulse Ox 99.0 F 92 128/81 H 99 09/01/17 19:42 09/01/17 19:42 09/01/17 19:42 09/01/17 19:42 Course - Vital Signs Vital signs: Temp Pulse Resp BP Pulse Ox 99.0 F 92 128/81 H 99 09/01/17 19:42 09/01/17 19:42 09/01/17 19:42 09/01/17 19:42
--- NOTE | 2017-09-01 22:33 | ER Document Report ---
ED General - General Chief Complaint: Vaginal Bleeding Stated Complaint: VAGINAL BLEEDING Time Seen by Provider: 09/01/17 20:04 Notes: Patient is a 27-year-old female presents with complaint of vaginal bleeding and . She is approximately 4-5 weeks . She was seen here today. At that time ultrasound was negative. Since then she has developed some bleeding and cramping pain and therefore is return to the ER. HCG yesterday was 550. She denies any vomiting. No diarrhea. No fevers. This is her third and she has had two live births. TRAVEL OUTSIDE OF THE [place] IN LAST 30 DAYS: No - Related Data Allergies/Adverse Reactions: No Known Allergies Allergy (Verified 05/29/16 22:01) Past Medical History - General Last Menstrual Period: 07/15/17 - Social History Smoking Status: Former Smoker Chew tobacco use (# tins/day): No Frequency of alcohol use: None Drug Abuse: None Family History: Arthritis, CAD, COPD, CVA, DM, Hyperlipidemia, Hypertension, Malignancy, Thyroid Disfunction Patient has suicidal ideation: No Patient has homicidal ideation: No - Past Medical History Cardiac Medical History: Reports: Hx Hypercholesterolemia Pulmonary Medical History: Reports: Hx Asthma, Hx Bronchitis Endocrine Medical History: Reports: Hx Diabetes Mellitus Type 2 Renal/ Medical History: Reports: Hx Ovarian Cysts, Hx Pelvic Inflammatory Disease. Denies: Hx Peritoneal Dialysis Psychiatric Medical History: Reports: Hx Anxiety, Hx Depression Past Surgical History: Reports: Hx Adenoidectomy, Hx Appendectomy, Hx Cholecystectomy, Hx Myringotomy, Hx Oral Surgery - [place] teeth, Hx Tonsillectomy, Other - Foreign body removed from right eye - Immunizations Hx Diphtheria, Pertussis, Tetanus Vaccination: Yes Review of Systems - Review of Systems Notes: My Normal Review Basic REVIEW OF SYSTEMS: CONSTITUTIONAL : Denies fever, chills, or sweats. Denies recent illness. RESPIRATORY: Denies cough, cold, or chest congestion. Denies shortness of breath, difficulty breathing, or wheezing. GASTROINTESTINAL: Lower pelvic cramping. Denies nausea, vomiting, or diarrhea. Denies constipation. Last BM: GENITOURINARY: Denies difficulty urinating, painful urination, burning, frequency, or blood in urine. FEMALE GENITOURINARY: Vaginal bleeding LMP: Currently MUSCULOSKELETAL: Denies neck or back pain or joint pain or swelling. SKIN: Denies rash or skin lesions. NEUROLOGICAL: Denies altered mental status or loss of consciousness. Denies headache. Denies weakness or paralysis or loss of use of either side. Denies problems with gait or speech. Denies sensory or motor loss. ALL OTHER SYSTEMS REVIEWED AND NEGATIVE. Physical Exam - Vital signs Vitals: Temp Pulse BP Pulse Ox 99.0 F 92 128/81 H 99 09/01/17 19:42 09/01/17 19:42 09/01/17 19:42 09/01/17 19:42 - Notes Notes: General Appearance: Well nourished, alert, cooperative, no acute distress, mild obvious discomfort. Vitals: reviewed, See vital signs table. Head: no swelling or tenderness to the head Eyes: PERRL, EOMI, Conjuctiva clear Mouth: No decreasd moisture Lungs: No wheezing, No rales, No rhonci, No accessory muscle use, good air exchange bilaterally. Heart: Normal rate, Regular rythm, No murmur, no rub Abdomen: Normal BS, soft, No rigidity, No abdominal tenderness, No guarding, no rebound, no abdominal masses, no organomegaly Pelvic exam: Pelvic exam performed with female family consumer scientist, Steven FERRIS. Normal external genitalia. Cervical loss is starting to open. Some blood in vaginal vault. No clots in cervical loss. Skin: warm, dry, appropriate color, no rash Neuro: speech clear, oriented x 3, normal affect, responds appropriately to questions. Course - Re-evaluation Re-evalutation: 09/02/17 03:38 Patient's hCG level is decreasing and her cervical also started open. I informed her that she is most likely having a miscarriage. I do not think she needs repeat ultrasound this time being that she does have an ultrasound 24 hours ago did not show an IUP and her hCG is decreasing. Abdomen is soft and minimally tender to palpation. Exam was not consistent with that of an ectopic. Vital signs are stable. I informed her that she should will probably have some increased bleeding over the next 24 hours and most likely have a miscarriage. She has follow-up performed with her doctor on Wednesday for repeat hCG. I informed her she needs to keep this appointment to have her hCG rechecked to make sure there is continues to down trend to 0. I informed her she should still have a very low threshold to return to ER immediately if she has worsening pain, heavy bleeding, fevers, or she feels unwell in any way. Patient agrees with plan and will be discharged home. Dictation of this chart was performed using voice recognition software; therefore, there may be some unintended grammatical errors. - Vital Signs Vital signs: Temp Pulse Resp BP Pulse Ox 99.0 F 76 18 121/79 100 09/01/17 19:42 09/01/17 22:50 09/01/17 22:50 09/01/17 22:50 09/01/17 22:50 - Laboratory Laboratory results interpreted by me: 09/01/17 20:48 Beta HCG, Quant 448.46 H Discharge - Discharge Clinical Impression: Vaginal bleeding during Condition: Good Disposition: HOME, SELF-CARE Additional Instructions: I suspect that you are having a miscarriage because your hormone level (HCG level) is downtrending. On rare occasions you can have still have a live with a fluctuation in your hCG levels however this is unlikely. Also on rare occasions you can have an ectopic with a down trending hCG level however this is extremely rare and based on your presentation I find this unlikely. You should still however have a very low threshold to return to the ER immediately if you have worsening pain, increasing bleeding, if you feel lightheaded or dizzy, or if you feel unwell. Please follow-up with your doctor on Wednesday as already scheduled to have her hCG level rechecked and to also be reevaluated. Return to the ER immediately if you have severe worsening pain, heavy bleeding, feel unwell, or if you develop fevers. Referrals: JILLIAN OCAMPO DO [Primary Care Provider] - Follow up as needed
[2017-09-01 23:06] VITALS: BP 121/79
== END 2017-09-01 22:55 | disposition home or self-care (01) ==
LOC: ER 19:26
DX: O46.91 Antepartum hemorrhage, unspecified, first trimester (principal); O26.891 Other specified pregnancy related conditions, first trimester; R10.2 Pelvic and perineal pain; R10.9 Unspecified abdominal pain; Z3A.00 Weeks of gestation of pregnancy not specified; Z87.891 Personal history of nicotine dependence; J45.909 Unspecified asthma, uncomplicated
CPT/HCPCS: 36415; 84702; 99284

== ENCOUNTER → 2017-09-03 | Outpatient (CLI) | payer MEDICAID | LOC: OD 16:14 | PROVIDERS: ATTEND Nurse Practitioner Family | DX: O03.9 Complete or unspecified spontaneous abortion without complication (principal) | CPT/HCPCS: 36415; 84702 ==

== ENCOUNTER 2017-12-30 23:36 | Emergency (ER) | payer MEDICAID ==
[2017-12-31 00:02] VITALS: BP 119/64
--- NOTE | 2017-12-31 00:47 | ER Document Report ---
ED Medical Screen (RME) - General Chief Complaint: Abdominal Cramping Stated Complaint: TEST Time Seen by Provider: 12/31/17 00:45 Notes: 27-year-old female chief complaint of abdominal cramping and positive home test. States she needs to know if she is officially because she is trying to proceed with her colonoscopy for workup of possible Crohn's. Reports primary care offices for her to have these tests are closed. Denies vomiting, abnormal stools, vaginal bleeding or discharge. Denies fever or chills. TRAVEL OUTSIDE OF THE [place] IN LAST 30 DAYS: No - Related Data Allergies/Adverse Reactions: No Known Allergies Allergy (Verified 05/29/16 22:01) Past Medical History - Past Medical History Cardiac Medical History: Reports: Hx Hypercholesterolemia Pulmonary Medical History: Reports: Hx Asthma, Hx Bronchitis Endocrine Medical History: Reports: Hx Diabetes Mellitus Type 2 Renal/ Medical History: Reports: Hx Ovarian Cysts, Hx Pelvic Inflammatory Disease. Denies: Hx Peritoneal Dialysis Psychiatric Medical History: Reports: Hx Anxiety, Hx Depression Past Surgical History: Reports: Hx Adenoidectomy, Hx Appendectomy, Hx Cholecystectomy, Hx Myringotomy, Hx Oral Surgery - [place] teeth, Hx Tonsillectomy, Other - Foreign body removed from right eye - Immunizations Hx Diphtheria, Pertussis, Tetanus Vaccination: Yes Physical Exam - Vital signs Vitals: Temp Pulse Resp BP Pulse Ox 98.7 F 69 18 119/64 100 12/31/17 00:01 12/31/17 00:01 12/31/17 00:01 12/31/17 00:01 12/31/17 00:01 - General General appearance: Appears well In distress: None - Abdominal Inspection: Normal Tenderness: Nontender Course - Vital Signs Vital signs: Temp Pulse Resp BP Pulse Ox 98.7 F 69 18 119/64 100 12/31/17 00:01 12/31/17 00:01 12/31/17 00:01 12/31/17 00:01 12/31/17 00:01 Doctor's Discharge - Discharge Referrals: JONNIE RUSSO FNP-C [Primary Care Provider] - Follow up as needed
[2017-12-31 01:12] LABS: ABSOLUTE BASOPHILS # (AUTO) 0.1 10^3/uL (0.0-0.2); ABSOLUTE EOSINOPHILS # (AUTO) 0.1 10^3/uL (0.0-0.6); ABSOLUTE MONOCYTES (AUTO) 0.8 10^3/uL (0.1-1.4); ABSOLUTE NEUT (AUTO) 6.7 10^3/uL (1.7-8.2); BASOPHILS % (AUTO) 1.2 % (0-2); EOSINOPHILS % (AUTO) 1.1 % (0-6); MEAN CORPUSCULAR HEMOGLOBIN 31.6 pg (27.0-33.4); MEAN CORPUSCULAR HGB CONC 35.1 g/dL (32.0-36.0); MEAN CORPUSCULAR VOLUME 90 fl (80-97); MONOCYTES % (AUTO) 6.4 % (3-13); PLATELET COUNT 354 10^3/uL (150-450); RED BLOOD COUNT 4.43 10^6/uL (3.72-5.28); SEGMENTED NEUTROPHILS % (AUTO) 57.3 % (42-78); TOTAL CELLS COUNTED % (AUTO) 100 %; WHITE BLOOD COUNT 11.7 10^3/uL (4.0-10.5)
[2017-12-31 01:16] LABS: APPEARANCE,URINE SLIGHTLY-CLOUDY; BILIRUBIN,URINE NEGATIVE (NEGATIVE); COLOR,URINE YELLOW; GLUCOSE, URINE NEGATIVE (NEGATIVE); KETONES,URINE NEGATIVE (NEGATIVE); LEUKOCYTE ESTERASE,URINE MODERATE (NEGATIVE); NITRITE,URINE NEGATIVE (NEGATIVE); PROTEIN,URINE NEGATIVE (NEGATIVE); URINE SPECIFIC GRAVITY 1.017; UROBILINOGEN,URINE NEGATIVE mg/dL (<2.0)
[2017-12-31 01:27] LABS: ALANINE AMINOTRANSFERASE 27 U/L (9-52); ALBUMIN 4.1 g/dL (3.5-5.0); ALKALINE PHOSPHATASE 35 U/L (38-126); ANION GAP 10 (5-19); ASPARTATE AMINO TRANSFERASE 14 U/L (14-36); BILIRUBIN,DIRECT 0.2 mg/dL (0.0-0.4); BILIRUBIN,TOTAL 0.4 mg/dL (0.2-1.3); BLOOD UREA NITROGEN 13 mg/dL (7-20); CALCIUM 10.2 mg/dL (8.4-10.2); CARBON DIOXIDE 23 mmol/L (22-30); CHLORIDE 104 mmol/L (98-107); GLUCOSE 98 mg/dL (75-110); POTASSIUM 4.4 mmol/L (3.6-5.0); TOTAL PROTEIN 7.3 g/dL (6.3-8.2)
--- NOTE | 2017-12-31 03:13 | ER Document Report ---
ED General - General Chief Complaint: Abdominal Cramping Stated Complaint: TEST Time Seen by Provider: 12/31/17 00:45 Notes: Patient is a 27-year-old female at 7 weeks by LMP who presents with lower abdominal cramping. She describes the cramping is a very mild, cramping, intermittent discomfort to her lower abdomen. Nothing improves or worsens her pain. No history of pain during this until today. She denies any associated vaginal bleeding or vaginal discharge. She was instructed to come to the emergency department by her OB group. No fever or constitutional symptoms. TRAVEL OUTSIDE OF THE [place] IN LAST 30 DAYS: No - Related Data Allergies/Adverse Reactions: No Known Allergies Allergy (Verified 05/29/16 22:01) Past Medical History - General Information source: Patient - Social History Smoking Status: Never Smoker Frequency of alcohol use: None Drug Abuse: None Lives with: Family Family History: Arthritis, CAD, COPD, CVA, DM, Hyperlipidemia, Hypertension, Malignancy, Thyroid Disfunction Patient has suicidal ideation: No Patient has homicidal ideation: No - Past Medical History Cardiac Medical History: Reports: Hx Hypercholesterolemia Pulmonary Medical History: Reports: Hx Asthma, Hx Bronchitis Endocrine Medical History: Reports: Hx Diabetes Mellitus Type 2 Renal/ Medical History: Reports: Hx Ovarian Cysts, Hx Pelvic Inflammatory Disease. Denies: Hx Peritoneal Dialysis Psychiatric Medical History: Reports: Hx Anxiety, Hx Depression Past Surgical History: Reports: Hx Adenoidectomy, Hx Appendectomy, Hx Cholecystectomy, Hx Myringotomy, Hx Oral Surgery - [place] teeth, Hx Tonsillectomy, Other - Foreign body removed from right eye - Immunizations Hx Diphtheria, Pertussis, Tetanus Vaccination: Yes Review of Systems - Review of Systems Notes: Constitutional: Negative for fever. HENT: Negative for sore throat. Eyes: Negative for visual changes. Cardiovascular: Negative for chest pain. Respiratory: Negative for shortness of breath. Gastrointestinal: Positive for lower abdominal pain Genitourinary: Negative for dysuria. Musculoskeletal: Negative for back pain. Skin: Negative for rash. Neurological: Negative for headaches, weakness or numbness. 10 point ROS negative except as marked above and in HPI. Physical Exam - Vital signs Vitals: Temp Pulse Resp BP Pulse Ox 98.7 F 69 18 119/64 100 12/31/17 00:01 12/31/17 00:01 12/31/17 00:01 12/31/17 00:01 12/31/17 00:01 Interpretation: Normal Notes: PHYSICAL EXAMINATION: GENERAL: Well-appearing, well-nourished and in no acute distress. HEAD: Atraumatic, normocephalic. EYES: Pupils equal round and reactive to light, extraocular movements intact, sclera anicteric, conjunctiva are normal. ENT: nares patent, oropharynx clear without exudates. Moist mucous membranes. NECK: Normal range of motion, supple without lymphadenopathy LUNGS: Breath sounds clear to auscultation bilaterally and equal. No wheezes rales or rhonchi. HEART: Regular rate and rhythm without murmurs ABDOMEN: Soft, nontender, normoactive bowel sounds. No guarding, no rebound. No masses appreciated. EXTREMITIES: Normal range of motion, no pitting or edema. No cyanosis. NEUROLOGICAL: No focal neurological deficits. Moves all extremities spontaneously and on command. PSYCH: Normal mood, normal affect. SKIN: Warm, Dry, normal turgor, no rashes or lesions noted. Course - Re-evaluation Re-evalutation: 12/31/17 03:10 Patient is currently and presenting with lower abdominal pain. No vaginal bleeding or discharge. Formal transvaginal ultrasound shows an intrauterine with active heart rate. Patient denies any dysuria and urinalysis is not consistent with an acute urinary tract infection. The patient does not have any focal right lower quadrant tenderness, rebound or guarding to suggest acute appendicitis. No right upper quadrant tenderness to suggest cholestasis of or an acute cholecystitis. Patient has tolerated oral intake here in the emergency department without difficulty. Vitals are within normal limits. At this time will discharge with return precautions and follow-up recommendations. Verbal discharge instructions given a the bedside and opportunity for questions given. Medication warnings reviewed. Patient is in agreement with this plan and has verbalized understanding of return precautions and the need for primary care follow-up in the next 24-72 hours. - Vital Signs Vital signs: Temp Pulse Resp BP Pulse Ox 98.7 F 69 18 119/64 100 12/31/17 00:01 12/31/17 00:01 12/31/17 00:01 12/31/17 00:01 12/31/17 00:01 - Laboratory Result Diagrams: 12/31/17 01:01 12/31/17 01:01 Laboratory results interpreted by me: 12/31/17 12/31/17 12/31/17 00:20 01:01 01:01 WBC 11.7 H Alkaline Phosphatase 35 L Beta HCG, Quant 43006.00 H Ur Leukocyte Esterase MODERATE H Urine HCG, Qual POSITIVE H - Diagnostic Test Radiology reviewed: Reports reviewed Discharge - Discharge Clinical Impression: First trimester , Abdominal cramping affecting Condition: Good Disposition: HOME, SELF-CARE Additional Instructions: You were seen for abdominal pain during . Your ultrasound and labs are normal today. The exact cause your pain is uncertain but is likely related to your developing baby. Please follow-up with your PLUMBING AND HEATING MECHANIC in the next 24-48 hours. Return to the emergency department immediately if you have worsening of your pain, have persistent vomiting, develop a fever of greater than 100.4F, begin to have vaginal bleeding, or any other symptoms that are worrisome to you. Prescriptions: Vit Calc,Iron,Folic [ Vitamins] 1 each PO DAILY #30 tablet Referrals: JONNIE RUSSO FNP-C [NO LOCAL MD] - Follow up as needed
--- NOTE | 2017-12-31 03:15 | RADIOLOGY REPORT (SQ) ---
CLINICAL DATA: 27-year-old female with abdominal pain and cramping and positive . TECHNICAL DATA: Sonographic imaging of the pelvis was performed transvaginally. Images were performed on 12/31/2017 at approximately 2:22 AM. FINDINGS: The uterus is normal in size and configuration and measures: 9.4 x 5.6 x 5.2 cm. The cervix measures 2.9 cm in length. There is a normal appearing intrauterine gestational sac. A yolk sac was identified by the technologist but not documented. A pole is present with an average crown-rump length of 0.74 cm corresponding to a gestational age of six weeks four days. The estimated date of confinement is 08/22/2018. Doppler imaging reveals a heart rate of 152 beats per minute. The right ovary is not well visualized on this examination. There are no right adnexal mass lesions.. The left ovary is grossly normal in size, shape and echogenicity and measures: 2.9 x 2.2 x 2.5 cm. Doppler interrogation of the left ovary was not documented. There is a small hypoechoic structure within the left ovary measuring approximately 1.6 x 1.2 x 1.1 cm. This may represent a corpus luteal cyst. There are no left adnexal mass lesions.. There is no free fluid in the pelvis. IMPRESSION: 1. Single living intrauterine with an estimated ultrasound age of six weeks four days corresponding to an estimated due date of 08/22/2018. The expected clinical gestational age corresponds to seven weeks two days. 2. The right ovary is not well visualized at this time.
== END 2017-12-31 03:44 | disposition home or self-care (01) ==
LOC: ER 23:36
DX: O26.891 Other specified pregnancy related conditions, first trimester (principal); R10.30 Lower abdominal pain, unspecified; O24.911 Unspecified diabetes mellitus in pregnancy, first trimester; Z3A.01 Less than 8 weeks gestation of pregnancy; J45.909 Unspecified asthma, uncomplicated
CPT/HCPCS: 36415; 76817; 80053; 81001; 81025; 84702; 85025; 99284

== ENCOUNTER 2018-01-31 17:44 | Emergency (ER) | payer MEDICAID ==
[2018-01-31 20:12] LABS: ABSOLUTE BASOPHILS # (AUTO) 0.1 10^3/uL (0.0-0.2); ABSOLUTE EOSINOPHILS # (AUTO) 0.1 10^3/uL (0.0-0.6); ABSOLUTE LYMPHOCYTES (AUTO) 3.2 10^3/uL (0.5-4.7); ABSOLUTE MONOCYTES (AUTO) 0.5 10^3/uL (0.1-1.4); ABSOLUTE NEUT (AUTO) 7.6 10^3/uL (1.7-8.2); BASOPHILS % (AUTO) 0.9 % (0-2); EOSINOPHILS % (AUTO) 0.6 % (0-6); HEMATOCRIT 38.6 % (36.0-47.0); HEMOGLOBIN 13.6 g/dL (12.0-15.5); LYMPHOCYTES % (AUTO) 27.5 % (13-45); MEAN CORPUSCULAR HEMOGLOBIN 31.4 pg (27.0-33.4); MEAN CORPUSCULAR HGB CONC 35.1 g/dL (32.0-36.0); MEAN CORPUSCULAR VOLUME 89 fl (80-97); MONOCYTES % (AUTO) 4.6 % (3-13); PLATELET COUNT 284 10^3/uL (150-450); RED BLOOD COUNT 4.33 10^6/uL (3.72-5.28); RED CELL DISTRIBUTION WIDTH 13.2 % (11.5-14.0); SEGMENTED NEUTROPHILS % (AUTO) 66.4 % (42-78); TOTAL CELLS COUNTED % (AUTO) 100 %; WHITE BLOOD COUNT 11.5 10^3/uL (4.0-10.5)
--- NOTE | 2018-01-31 20:16 | ER Document Report ---
ED GI/ - General Chief Complaint: Pelvic Pain Stated Complaint: PELVIC PAIN Time Seen by Provider: 01/31/18 19:35 Mode of Arrival: Ambulatory Information source: Patient Notes: Patient is a 27-year-old female who is a currently 12 weeks who presents with multiple complaints today. Patient reports complaint of severe pelvic pain and pelvic pain in the right side. Patient also reports abnormal vaginal discharge with a foul smell. Patient also complains of right flank pain and swelling to the right side of her back. Patient also complains of right ear pain times 2 days and states that her hearing is impaired due to this. Patient denies any vaginal bleeding. [facility]. TRAVEL OUTSIDE OF THE [place] IN LAST 30 DAYS: No - Related Data Allergies/Adverse Reactions: No Known Allergies Allergy (Verified 05/29/16 22:01) Past Medical History - General Information source: Patient - Social History Smoking Status: Current Every Day Smoker Frequency of alcohol use: None Drug Abuse: None Family History: Arthritis, CAD, COPD, CVA, DM, Hyperlipidemia, Hypertension, Malignancy, Thyroid Disfunction Patient has suicidal ideation: No Patient has homicidal ideation: No - Past Medical History Cardiac Medical History: Reports: Hx Hypercholesterolemia Pulmonary Medical History: Reports: Hx Asthma, Hx Bronchitis Endocrine Medical History: Reports: Hx Diabetes Mellitus Type 2 Renal/ Medical History: Reports: Hx Ovarian Cysts, Hx Pelvic Inflammatory Disease. Denies: Hx Peritoneal Dialysis Psychiatric Medical History: Reports: Hx Anxiety, Hx Depression Past Surgical History: Reports: Hx Adenoidectomy, Hx Appendectomy, Hx Cholecystectomy, Hx Myringotomy, Hx Oral Surgery - [place] teeth, Hx Tonsillectomy, Other - Foreign body removed from right eye - Immunizations Hx Diphtheria, Pertussis, Tetanus Vaccination: Yes Review of Systems - Review of Systems EENT: Ear pain Genitourinary: Flank pain Female Genitourinary: Vaginal discharge, Other - Pelvic pain -: Yes All other systems reviewed and negative Physical Exam - Vital signs Vitals: Temp Pulse Resp BP Pulse Ox 99.3 F 81 16 130/73 H 99 01/31/18 17:48 01/31/18 17:48 01/31/18 17:48 01/31/18 17:48 01/31/18 17:48 - Notes Notes: PHYSICAL EXAMINATION: GENERAL: Well-appearing, well-nourished and in no acute distress. HEAD: Atraumatic, normocephalic. EYES: Pupils equal round and reactive to light, extraocular movements intact, conjunctiva are normal. ENT: Nares patent, oropharynx clear without exudates. Moist mucous membranes. Right ear canal with edema, macerated and erythematous. Bilateral tympanic membranes intact. NECK: Normal range of motion, supple without lymphadenopathy LUNGS: Breath sounds clear to auscultation bilaterally and equal. No wheezes rales or rhonchi. HEART: Regular rate and rhythm without murmurs ABDOMEN: Soft, nontender, nondistended abdomen. No guarding, no rebound. No masses appreciated. Female : Right-sided CVA tenderness, speculum exam reveals thick white discharge from the cervical office, cervix closed, no cervical motion tenderness , no adnexal tenderness. Musculoskeletal: Normal range of motion, no pitting or edema. No cyanosis. NEUROLOGICAL: Cranial nerves grossly intact. Normal speech, normal gait. Normal sensory, motor exams PSYCH: Normal mood, normal affect. SKIN: Warm, Dry, normal turgor, no rashes or lesions noted. Course - Re-evaluation Re-evalutation: CBC, CMP are unremarkable. Urinalysis shows moderate leukocyte esterase. Wet mount with 3+ bacteria. Transvaginal ultrasound reveals a 12-week intrauterine without complication. Patient will be treated for right otitis externa, bacterial vaginosis as well as urinary tract infection and discharged home in stable condition. Patient verbalizes understanding and agreement with plan. Patient to follow-up with PROCESS CONTROL TECH for a recheck. - Vital Signs Vital signs: Temp Pulse Resp BP Pulse Ox 97.8 F 63 18 120/54 L 99 01/31/18 21:56 01/31/18 21:56 01/31/18 21:56 01/31/18 21:56 01/31/18 21:56 - Laboratory Result Diagrams: 01/31/18 19:50 01/31/18 19:50 Laboratory results interpreted by me: 01/31/18 01/31/18 01/31/18 19:50 19:50 19:50 WBC 11.5 H Sodium 134.3 L Carbon Dioxide 20 L Urine Ketones TRACE H Urine Urobilinogen 2.0 H Ur Leukocyte Esterase MODERATE H Urine Ascorbic Acid 40 H Discharge - Discharge Clinical Impression: Bacterial vaginosis Urinary tract infection Qualifiers: Urinary tract infection type: site unspecified Hematuria presence: without hematuria Qualified Code(s): N39.0 - Urinary tract infection, site not specified Otitis externa Qualifiers: Otitis externa type: unspecified type Chronicity: unspecified Laterality: right Qualified Code(s): H60.91 - Unspecified otitis externa, right ear Condition: Stable Disposition: HOME, SELF-CARE Additional Instructions: Vaginosis, Bacterial Your exam shows you have bacterial vaginosis. This condition is due to an overgrowth of bacteria in the vagina. Symptoms may include vaginal itching or pain, a smelly discharge, and sometimes burning with urination. Normally this is not transmitted by sexual contact. Vaginosis can be treated with oral or topical antibiotics. Metronidazole ( Flagyl) pills are usually effective. Topical vaginal creams include Cleocin and Metro-Gel. You should avoid sexual contact until your symptoms are all better. Call the doctor if you develop pelvic pain, fever, or problems with urination, or if you don't improve as expected. URINARY TRACT INFECTION: Your evaluation indicates that you have a urinary tract infection. This is due to germs growing in the bladder. This is a common problem. This infection usually responds quickly to antibiotics. Your antibiotic should be taken exactly as prescribed. Drink plenty of fluids -- three to four quarts a day. Occasionally, a bladder anesthetic will be prescribed to help stop the feeling of urgency until the antibiotic has a chance to clear the infection. This may cause your urine to be dark orange. Certain urine infections require a culture. If the doctor obtained a culture, the results will be back in two days. You should call to see if a change in treatment is needed. A repeat urinalysis after you finish treatment is often recommended. The physician will let you know if further testing is required. Call the doctor if you develop fever, chills, flank pain, inability to urinate, or blood in the urine. Otitis Externa You have otitis externa -- an infection of the outer ear canal. This can be very painful. It's sometimes called "swimmer's ear," because it often occurs after prolonged water exposure. Many things, such as earwax and dirt in the ear, can contribute to it. The usual treatment is antibiotic/antiinflammatory ear drops. Occasionally , a wick will be placed in the ear to draw in the medicine. If the infection is severe, an oral antibiotic may be prescribed. Pain medication is often needed. Avoid getting water in the ear. Outer ear infections often take longer to heal than you might expect. Some tenderness and ache in the ear may persist for about two weeks. See your physician if you fail to improve as expected. Call the doctor at once if you develop fever, increasing swelling (particularly if it makes your ear "poke out"), severe headache, stiff neck, or decreased hearing. ANTIBIOTIC THERAPY: You have been given an antibiotic prescription. It's important that you take all the medication, unless instructed otherwise by your physician. Failure to complete the entire course can result in relapse of your condition. Common side effects of antibiotics include nausea, intestinal cramping, or diarrhea. Women may develop vaginal yeast infections, and babies can get yeast (thrush) in the mouth following the use of antibiotics. Contact your physician if you develop significant side effects from this medication. Allergy to this antibiotic can result in hives, wheezing, faintness, or itching. If symptoms of allergy occur, stop the medication and call the doctor. CEPHALEXIN: The antibiotic you've been prescribed is a member of the cephalosporin class. This type of antibiotic covers a wide variety of infections, including those of the skin, lungs, and urinary tract. It's useful for staph infections. This antibiotic is slightly similar to the penicillin family. In rare cases , a person who is allergic to penicillin will also be allergic to this medication. If you have had a severe allergic reaction to penicillin, and have not taken this antibiotic since that time, notify your doctor. Antibiotics which cover many germs ("broad spectrum" antibiotics) are more likely to cause diarrhea or "yeast" infections. Women prone to vaginal yeast problems may suffer an attack after taking this antibiotic. In infants, oral thrush (white spots "stuck" on the cheek) or yeast diaper rash may result. See your doctor if these problems occur. Call at once if you develop itching, hives , shortness of breath, or lightheadedness. FOLLOW-UP CARE: If you have been referred to a physician for follow-up care, call the physician s office for an appointment as you were instructed or within the next two days. If you experience worsening or a significant change in your symptoms, notify the physician immediately or return to the Emergency Department at any time for re-evaluation. You have both a mild urinary tract infection as well as a vaginal bacterial infection. I am placing you on 2 different antibiotics that we will treat these. Is very important especially in to get any type of infections like this under control. Take 4 drops of the ciprodex to each earr twice daily for the next 7-10 days. Please follow-up with your PROCESS CONTROL TECH in the next 3-5 days for a follow-up I would like him to recheck your urine. Return to the emergency department if you develop worsening symptoms to include development of fever, worsening abdominal pain or any other symptom that is concerning to you. Prescriptions: Cephalexin [Cephalexin 500 MG Capsule] 1 cap PO BID #14 cap Clindamycin HCl 300 mg PO BID #14 capsule Forms: Return to Work Referrals: JILLIAN OCAMPO DO [Primary Care Provider] - Follow up as needed
[2018-01-31 20:17] LABS: APPEARANCE,URINE SLIGHTLY-CLOUDY; BILIRUBIN,URINE NEGATIVE (NEGATIVE); COLOR,URINE YELLOW; GLUCOSE, URINE NEGATIVE (NEGATIVE); KETONES,URINE TRACE mg/dL (NEGATIVE); LEUKOCYTE ESTERASE,URINE MODERATE (NEGATIVE); NITRITE,URINE NEGATIVE (NEGATIVE); PROTEIN,URINE NEGATIVE (NEGATIVE); URINE SPECIFIC GRAVITY 1.028
[2018-01-31 20:40] LABS: BACTERIA (WET MOUNT) 3+ BACTERIA SEEN; EPITHELIALS (WET MOUNT) 3+ EPITHELIALS SEEN; RBCS (WET MOUNT) RARE RBCS SEEN; T.VAGINALIS (WET MOUNT) NO TRICHOMONAS SEEN; WBCS (WET MOUNT) 4+ WBCS SEEN; YEAST (WET MOUNT) NO YEAST SEEN
[2018-01-31 20:41] LABS: ALANINE AMINOTRANSFERASE 22 U/L (9-52); ALBUMIN 4.2 g/dL (3.5-5.0); ALKALINE PHOSPHATASE 40 U/L (38-126); ANION GAP 9 (5-19); ASPARTATE AMINO TRANSFERASE 15 U/L (14-36); BILIRUBIN,DIRECT 0.2 mg/dL (0.0-0.4); BILIRUBIN,TOTAL 0.3 mg/dL (0.2-1.3); BLOOD UREA NITROGEN 7 mg/dL (7-20); CALCIUM 9.3 mg/dL (8.4-10.2); CARBON DIOXIDE 20 mmol/L (22-30); CHLORIDE 105 mmol/L (98-107); GLUCOSE 99 mg/dL (75-110); POTASSIUM 3.8 mmol/L (3.6-5.0); SODIUM 134.3 mmol/L (137-145); TOTAL PROTEIN 7.4 g/dL (6.3-8.2)
--- NOTE | 2018-01-31 21:39 | RADIOLOGY REPORT (SQ) ---
EXAM DESCRIPTION: US LESS THAN 14 WEEKS COMPLETED DATE/TME: 01/31/2018 19:36 CLINICAL HISTORY: 27 years, Female, pelvic pain COMPARISON: EXAM DESCRIPTION: CLINICAL HISTORY: pelvic pain COMPARISON: None. FINDINGS: [Transabdominal ] [ ] images of the pelvis were submitted. There is a single live IUP. Uterus measures 11.8 x 8.0 x 7.3 cm and right ovary 29 x 34 x 25 mm. Cervix length is 41 mm. heart rate is 187 bpm. Estimated gestational age 12 weeks two days. Ultrasound MARLENE is 08/13/2018. Cyst measures 13 x 15 x 11 mm in the right ovary and is almost certainly benign. . IMPRESSION: IUP as above. Right ovarian cyst is almost certainly benign. No follow-up is recommended. TECHNIQUE: LIMITATIONS: None. FINDINGS: IMPRESSION: 2010 [employer] - [employer]- All Rights Reserved
[2018-01-31] MEDS ORDERED: CIPROFLOXACIN HCL/DEXAMETH OTIC DROP 7.5 ML AU ONE (21:41)
[2018-01-31] MEDS ORDERED: CLINDAMYCIN HCL 150 MG CAPSULE PO ONE (21:46)
[2018-01-31] MEDS ORDERED: CEPHALEXIN 500 MG CAPSULE PO ONE (21:47)
[2018-01-31 22:04] VITALS: BP 120/54
[2018-01-31 22:06] LABS: CHLAM PCR NOT DETECTED (NOT DETECT); GON PCR NOT DETECTED (NOT DETECT)
== END 2018-01-31 22:04 | disposition home or self-care (01) ==
LOC: ER 17:44
DX: O23.591 Infection of other part of genital tract in pregnancy, first trimester (principal); N76.0 Acute vaginitis; B96.89 Other specified bacterial agents as the cause of diseases classified elsewhere; O23.41 Unspecified infection of urinary tract in pregnancy, first trimester; O26.891 Other specified pregnancy related conditions, first trimester; H60.91 Unspecified otitis externa, right ear; R10.2 Pelvic and perineal pain; H92.01 Otalgia, right ear; Z3A.12 12 weeks gestation of pregnancy; F17.200 Nicotine dependence, unspecified, uncomplicated; J45.909 Unspecified asthma, uncomplicated; E11.9 Type 2 diabetes mellitus without complications
CPT/HCPCS: 99284; 36415; 87210; 85025; 80053; 81001; 87491; 87591; 76801; 93976; J3490 ×2

== ENCOUNTER 2018-06-10 18:09 | Outpatient (CLI) | payer MEDICAID ==
[2018-06-10 20:05] LABS: APPEARANCE,URINE SLIGHTLY-CLOUDY; BILIRUBIN,URINE NEGATIVE (NEGATIVE); CALCIUM OXALATE CRYSTALS,URINE FEW /HPF; GLUCOSE, URINE 50 mg/dL (NEGATIVE); KETONES,URINE TRACE mg/dL (NEGATIVE); LEUKOCYTE ESTERASE,URINE NEGATIVE (NEGATIVE); NITRITE,URINE NEGATIVE (NEGATIVE); PROTEIN,URINE NEGATIVE (NEGATIVE); URINE SPECIFIC GRAVITY 1.032; UROBILINOGEN,URINE NEGATIVE mg/dL (<2.0)
[2018-06-10 20:07] LABS: COLOR,URINE YELLOW
[2018-06-10 20:17] LABS: URINE AMPHETAMINES SCREEN NEGATIVE; URINE BARBITURATES SCREEN NEGATIVE; URINE BENZODIAZEPINES SCREEN NEGATIVE; URINE COCAINE SCREEN NEGATIVE; URINE METHADONE SCREEN NEGATIVE; URINE PHENCYCLIDINE SCREEN NEGATIVE
[2018-06-10 20:28] LABS: BACTERIA (WET MOUNT) 4+ BACTERIA SEEN; EPITHELIALS (WET MOUNT) 4+ EPITHELIALS SEEN; RBCS (WET MOUNT) NO RBCS SEEN; T.VAGINALIS (WET MOUNT) NO TRICHOMONAS SEEN; WBCS (WET MOUNT) 4+ WBCS SEEN; YEAST (WET MOUNT) NO YEAST SEEN
[2018-06-10 20:36] LABS: URINE MARIJUANA (THC) SCREEN UNCONFIRMED POSITIVE
[2018-06-10 21:55] LABS: CHLAM PCR NOT DETECTED (NOT DETECT); GON PCR NOT DETECTED (NOT DETECT)
--- NOTE | 2018-06-10 22:53 | RADIOLOGY REPORT (SQ) ---
EXAM DESCRIPTION: US LIMITED COMPLETED DATE/TME: 06/10/2018 00:00 CLINICAL HISTORY: 27 years, Female, vaginal pain, 29.4, cervical length, placenta COMPARISON: None. TECHNIQUE: LIMITATIONS: None. FINDINGS: A limited ultrasound was performed. There is a single live IUP in vertex presentation. cardiac activity was measured at 130 bpm. The placenta is posterior in location with no evidence of abruption or previa. There is a normal amount of amniotic fluid. The cervix measures 3.2 cm in length and is closed. IMPRESSION: Live IUP as described. copyright 2010 [employer]- All Rights Reserved
== END 2018-06-10 21:48 | disposition home or self-care (01) ==
LOC: LC 18:09
PROVIDERS: ATTEND Student in an Organized Health Care Education/Training Program
DX: O47.9 False labor, unspecified (principal); O24.119 Pre-existing type 2 diabetes mellitus, in pregnancy, unspecified trimester; E11.9 Type 2 diabetes mellitus without complications; Z79.84 Long term (current) use of oral hypoglycemic drugs
CPT/HCPCS: 87210; 81001; 80307; 87491; 87591; 76815; G0480 ×2; 80349

== ENCOUNTER 2018-07-11 17:37 | Outpatient (CLI) | payer MEDICAID ==
--- NOTE | 2018-07-11 18:27 | Non Stress Test Report ---
Non Stress Test Datetime Report Generated by CPN: 07/11/2018 18:27 DEMOGRAPHIC EGA NST: 34.0 INDICATION Indication for Study: Diabetes Mellitus; Other Indication for Study (NST) Other: repeat from [facility] MONITORING Monitor Explained: Monitor Explained; Test Explained; Patient Verbalized Understanding Time on Monitor: 07/11/2018 17:49 Time off Monitor: 07/11/2018 18:16 NST Duration: 27 NST INTERVENTIONS NST Interventions: PO Hydration Physician Notified NST: Dr. Younger BABY A: [id number] BABY A Movement : Present Contraction Frequency : none FHR Baseline : 150 Accelerations : 15X15 Decelerations : None Variability : Moderate 6-25bpm NST Review: Meets Criteria for Reactive NST NST Review and Verified By : MAXIMILIANO Jaquez Results: Reactive NST REPORT Report Trigger: Send Report
== END 2018-07-11 18:20 | disposition home or self-care (01) ==
LOC: LC 17:37
PROVIDERS: ATTEND Obstetrics & Gynecology
PROC: 4A1HXCZ Monitoring of Products of Conception, Cardiac Rate, External Approach (ICD-10-PCS; principal; 2018-07-11)
DX: O24.113 Pre-existing type 2 diabetes mellitus, in pregnancy, third trimester (principal); E11.9 Type 2 diabetes mellitus without complications; Z3A.34 34 weeks gestation of pregnancy
CPT/HCPCS: 59025

== ENCOUNTER 2018-08-09 08:03 | Inpatient (IN) | payer MEDICAID ==
[2018-08-09] MEDS ORDERED: ALBUTEROL SULFATE HFA (90 MCG/PUFF) 200 PUFF/8.5 GM MDI IH PRN (09:13)
[2018-08-09] MEDS ORDERED: OXYTOCIN/NORMAL SALINE 20 UNIT/1,000 ML RTUINJ ONE (09:27)
[2018-08-09] MEDS ORDERED: MISOPROSTOL 0.2 MG TABLET ONE (09:27)
[2018-08-09] MEDS ORDERED: LIDOCAINE 1% INJ-PF (10 MG/ML) 30 ML SDV ONE (09:27)
--- NOTE | 2018-08-09 09:56 | Admission Physical ---
Datetime Report Generated by CPN: 08/09/2018 09:56 CURRENT ADMISSION Chief Complaint: Uterine Contractions Indication for Induction: Not Applicable Admit Impression : Term, Intrauterine Admit Plan: Admit to Unit; Initiate Labor Protocol ALLERGIES Medication Allergies: No Medication Allergies: No Known Allergies (07/11/2018) Latex: No Latex Allergies Food Allergies: None Environmental Allergies: Seasonal and animals OBSTETRICAL HISTORY EDC: 08/22/2018 00:00 : 4 Para: 2 Term: 2 : 0 SAB: 1 IAB: 0 Ectopic: 0 Livin Cesareans: 2 VBACs: 0 Multiple Births: 0 Gestational Diabetes: No Rh Sensitization: No Incompetent Cervix: No ZACHERY: No Infertility: Yes ART Treatment: No Uterine Anomaly: No IUGR: No Hx Previous C/S: No Macrosomia: No Hx Loss/Stillborn: No PIH: No Hx : No Placenta Previa/Abruption: No Depression/PP Depression: Yes PTL/PROM: No Post Hemorrhage: No Current Procedures: Ultrasound Obstetrical History Comments: PCOS dx about four years ago. G1- 2009, 41 weeks, IOL G2- 2014, 39 weeks, IOL, GDM G3- 2017, SAB G-4 Current SEE RECORDS Alcohol: Yes Alcohol Frequency: Occasional Advised to Stop: Yes Marijuana : No Cocaine: No Other Illicit Drugs: No Cigarettes: Former Smoker. 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 INFECTIOUS HISTORY Gonorrhea: Yes Genital Herpes: Yes Chlamydia: Yes Tuberculosis: No Syphilis: No Hepatitis: No HIV/AIDS Exposure: No Rash or Viral Illness: No HPV: No Infectious History Comments: Gonorrhea- 2016, Chlamydia 2013, never had an outbreak of HSV but a positive blood test and shingles. PHYSICAL EXAM General: Normal HEENT: Normal Neurologic: Normal Thyroid: Deferred Heart: Normal Lungs: Normal Breast: Deferred Back: Normal Abdomen: Normal Genitourinary Exam: Normal Extremities: Normal DTRs: Deferred Pelvic Type: Adequate Vital Signs: Reviewed; Within Normal Limits VAGINAL EXAM Dilatation: 8 Effacement: 80 Contraction Comments: q2-3 mins MEMBRANES Membranes: Intact FETUS A EGA: 38.1 Monitoring: External US FHR- Baseline: 135 Variability: Moderate 6-25bpm Accelerations: 15X15 Decelerations: None FHR Category: Category I Estimated Weight (gm): 3300 Presentation: Vertex Presentation- Other: by SVE Admit Comment: at 39w1d admitted for labor. GDM vs DM, asthma. P: admit for -late entry, already delivered. PLANS FOR LABOR AND DELIVERY Labor and Delivery: Other, Specify Pain Management: Natural Feeding Preference: Both Benefit of Breast Feed Discussed: Yes Circumcision: No INFORMED CONSENT Assignment: Severo Mendoza MD Signature: with User ID: [email or web address] : with User ID: [email or web address]
[2018-08-09] MEDS ORDERED: BENZOCAINE/MENTHOL AEROSOL SPRAY 56 ML TOP PRN (10:00)
[2018-08-09] MEDS ORDERED: GLYCERIN/WITCH HAZEL LEAF 1 EACH MED..WIPE TP PRN (10:00)
[2018-08-09] MEDS ORDERED: ZOLPIDEM TARTRATE 5 MG TABLET PO PRN (10:00)
[2018-08-09] MEDS ORDERED: PROMETHAZINE HCL 25 MG SUPP.RECT PR PRN (10:00)
[2018-08-09] MEDS ORDERED: MEASLES,MUMPS&RUBELLA VACC/PF 0.5 ML VIAL SUBCUT PRN (10:00)
[2018-08-09] MEDS ORDERED: OXYTOCIN/NORMAL SALINE 20 UNIT/1,000 ML RTUINJ IV PRN (10:00)
[2018-08-09] MEDS ORDERED: DIPHENHYDRAMINE HCL 25 MG CAPSULE PO PRN (10:00)
[2018-08-09] MEDS ORDERED: DIPH/PERTUSS(ACELL)/TETANUS VAC/PF 0.5 ML SYR (>=10YO) IM PRN (10:00)
[2018-08-09] MEDS ORDERED: PSEUDOEPHEDRINE HCL 30 MG TABLET PO PRN (10:00)
[2018-08-09] MEDS ORDERED: ACETAMINOPHEN 650 MG SUPP.RECT PR PRN (10:00)
[2018-08-09] MEDS ORDERED: PROMETHAZINE HCL INJ 25 MG/1 ML VIAL IV PRN (10:00)
[2018-08-09] MEDS ORDERED: ACETAMINOPHEN WITH CODEINE #3 TABLET PO PRN ×2 (10:00)
[2018-08-09] MEDS ORDERED: MAGNESIUM HYDROXIDE SUSP 30 ML UDCUP PO PRN (10:00)
[2018-08-09] MEDS ORDERED: DIBUCAINE 1% OINTMENT 56 GM TP PRN (10:00)
[2018-08-09] MEDS ORDERED: PROMETHAZINE HCL 25 MG TABLET PO PRN (10:00)
[2018-08-09] MEDS ORDERED: NA PHOS,M-B/NA PHOS,DI-BA (ADULT) 133 ML ENEMA PR PRN (10:00)
[2018-08-09 11:09] LABS: ABSOLUTE LYMPHOCYTES (AUTO) 1.2 10^3/uL (0.5-4.7); ABSOLUTE MONOCYTES (AUTO) 0.5 10^3/uL (0.1-1.4); ABSOLUTE NEUT (AUTO) 12.1 10^3/uL (1.7-8.2); BASOPHILS % (AUTO) 0.1 % (0-2); EOSINOPHILS % (AUTO) 0.1 % (0-6); HEMATOCRIT 36.4 % (36.0-47.0); HEMOGLOBIN 12.3 g/dL (12.0-15.5); LYMPHOCYTES % (AUTO) 8.7 % (13-45); MEAN CORPUSCULAR HGB CONC 33.8 g/dL (32.0-36.0); MEAN CORPUSCULAR VOLUME 89 fl (80-97); MONOCYTES % (AUTO) 3.5 % (3-13); PLATELET COUNT 184 10^3/uL (150-450); RED CELL DISTRIBUTION WIDTH 13.4 % (11.5-14.0); SEGMENTED NEUTROPHILS % (AUTO) 87.6 % (42-78); TOTAL CELLS COUNTED % (AUTO) 100 %; WHITE BLOOD COUNT 13.8 10^3/uL (4.0-10.5)
[2018-08-09] MEDS: FAMOTIDINE 20 MG TABLET PO SCH ×2 (13:41→22:06)
[2018-08-09] MEDS: FERROUS SULFATE 325 MG TABLET PO SCH ×2 (13:41→17:32)
[2018-08-09] MEDS: DOCUSATE SODIUM 100 MG CAPSULE PO SCH ×2 (13:41→17:33)
[2018-08-09] MEDS: SENNOSIDES/DOCUSATE 8.6-50 MG 1 EACH TABLET PO SCH (13:42)
[2018-08-09] MEDS: IBUPROFEN 800 MG TABLET PO SCH ×2 (13:42→17:32)
[2018-08-09] MEDS: PRENATAL VITAMIN W DHA CAPSULE PO SCH (13:42)
[2018-08-09] MEDS: ESCITALOPRAM OXALATE 10 MG TABLET PO SCH (15:54)
[2018-08-09] MEDS: METFORMIN HCL 500 MG TABLET PO SCH (15:54)
[2018-08-09 20:02] LABS: APPEARANCE,URINE CLEAR; BILIRUBIN,URINE NEGATIVE (NEGATIVE); GLUCOSE, URINE >=500 mg/dL (NEGATIVE); KETONES,URINE NEGATIVE (NEGATIVE); LEUKOCYTE ESTERASE,URINE MODERATE (NEGATIVE); NITRITE,URINE NEGATIVE (NEGATIVE); PROTEIN,URINE 100 mg/dL (NEGATIVE); URINE SPECIFIC GRAVITY 1.011; UROBILINOGEN,URINE NEGATIVE mg/dL (<2.0)
[2018-08-09 20:06] LABS: COLOR,URINE RED
[2018-08-09 20:14] LABS: URINE AMPHETAMINES SCREEN NEGATIVE; URINE BARBITURATES SCREEN NEGATIVE; URINE BENZODIAZEPINES SCREEN NEGATIVE; URINE COCAINE SCREEN NEGATIVE; URINE METHADONE SCREEN NEGATIVE; URINE PHENCYCLIDINE SCREEN NEGATIVE
[2018-08-09 20:31] LABS: URINE MARIJUANA (THC) SCREEN UNCONFIRMED POSITIVE
[2018-08-10] MEDS: IBUPROFEN 800 MG TABLET PO SCH ×2 (02:08→09:43)
[2018-08-10 06:33] LABS: ABSOLUTE EOSINOPHILS # (AUTO) 0.1 10^3/uL (0.0-0.6); ABSOLUTE MONOCYTES (AUTO) 0.6 10^3/uL (0.1-1.4); ABSOLUTE NEUT (AUTO) 5.6 10^3/uL (1.7-8.2); BASOPHILS % (AUTO) 0.3 % (0-2); EOSINOPHILS % (AUTO) 0.6 % (0-6); HEMATOCRIT 26.7 % (36.0-47.0); MEAN CORPUSCULAR VOLUME 89 fl (80-97); MONOCYTES % (AUTO) 5.4 % (3-13); PLATELET COUNT 150 10^3/uL (150-450); RED BLOOD COUNT 3.01 10^6/uL (3.72-5.28); RED CELL DISTRIBUTION WIDTH 13.7 % (11.5-14.0); SEGMENTED NEUTROPHILS % (AUTO) 54.7 % (42-78); TOTAL CELLS COUNTED % (AUTO) 100 %; WHITE BLOOD COUNT 10.3 10^3/uL (4.0-10.5)
[2018-08-10 06:38] LABS: HEMOGLOBIN 9.3 g/dL (12.0-15.5)
[2018-08-10 08:21] VITALS: BP 117/73
[2018-08-10] MEDS: PRENATAL VITAMIN W DHA CAPSULE PO SCH (09:43)
[2018-08-10] MEDS: ESCITALOPRAM OXALATE 10 MG TABLET PO SCH (09:44)
[2018-08-10] MEDS: DOCUSATE SODIUM 100 MG CAPSULE PO SCH (09:44)
[2018-08-10] MEDS: FERROUS SULFATE 325 MG TABLET PO SCH (09:44)
[2018-08-10] MEDS: METFORMIN HCL 500 MG TABLET PO SCH (09:44)
[2018-08-10] MEDS: FAMOTIDINE 20 MG TABLET PO SCH (09:57)
[2018-08-10] MEDS: SENNOSIDES/DOCUSATE 8.6-50 MG 1 EACH TABLET PO SCH (09:57)
--- NOTE | 2018-08-26 09:25 | Delivery Summary ---
Del Sum A-C Datetime Report Generated by CPN: 08/26/2018 09:25 DELIVERY PERSONNEL DELIVERY PERSONNEL: [id number] Delivery Doctor:: Layla Genao CNM Nurse Wallpaper Printer Helper Certified:: Layla Genao CNM Labor and Delivery Nurse:: ANA Castelan Regional Director Of Admissions/PUBLIC SAFETY TELECOMMUNICATOR: Magaly Wolff, MOBILE HOME PARK MANAGER MATERNAL INFORMATION Delivery Anesthesia: None Medications After Delivery: Pitocin Bolus-Please Comment; Pitocin Drip 20 Units/1000ml NSS Estimated Blood Loss (ml): 500 Maternal Complications: Precipitous Labor (<3hrs) Provider Comments: NEHA VIABLE MALE WITH SPONTANEOUS CRY. CORD DOUBLE CLAMPED AND CUT. SPONTANEOUS INTACT PLACENTA WITH 3VC. NO LACERATIONS. MOTHER AND STABLE IN L_D#4. LABOR SUMMARY EDC: 08/22/2018 00:00 No. Babies in Womb: 1 Attempted: No Labor Anesthesia: None LABOR INFORMATION Reason for Induction: Not Applicable Onset of Labor: 08/09/2018 06:00 Complete Dilatation: 08/09/2018 09:25 Oxytocin: N/A Group B Beta Strep: neg Antibiotics # of Doses: 0 Antibiotics Time of Last Dose: n/a Name of Antibiotic Given: n/a Steroids Given: None Reason Steroids Not Administered: Not Applicable MEMBRANES Membranes Rupture Method: Artificial Rupture of Membranes: 08/09/2018 09:23 Length of Rupture (hr): 0.15 Amniotic Fluid Color: Clear Amniotic Fluid Amount: Small Amniotic Fluid Odor: None STAGES OF LABOR Stage 1 hr: 3 Stage 1 min: 25 Stage 2 hr: 0 Stage 2 min: 7 Stage 3 hr: 0 Stage 3 min: 8 Total Time in Labor hr: 3 Total Time in Labor min: 40 VAGINAL DELIVERY Episiotomy: None Laceration #1: None Laceration Extension #1: N/A Laceration Repair: Not Applicable Sponge Count Correct: N/A BABY A INFORMATION Infant Delivery Date/Time: 08/09/2018 09:32 Method of Delivery: Vaginal Born in Route : No : N/A Forceps: N/A Vacuum Extraction: N/A Shoulder Dystocia : No PRESENTATION/POSITION BABY A Presentation: Cephalic Cephalic Presentation: Vertex Vertex Position: Right Occipital Anterior Breech Presentation: N/A PLACENTA INFORMATION BABY A Placenta Delivery Time : 08/09/2018 09:40 Placenta Method of Delivery: Spontaneous Placenta Status: Delivered SCORES BABY A Heart Rate 1 min: >100 bpm Resp Effort 1 min: Good Cry Reflex Irritability 1 min: Cough or Sneeze or Pulls Away Muscle Tone 1 min: Active Motion Color 1 min: Body [place], Extremities Blue Resuscitation Effort 1 min: Tactile Stimulation SCORE 1 MIN: 9 Heart Rate 5 min: >100 bpm Resp Effort 5 min: Good Cry Reflex Irritability 5 min: Cough or Sneeze or Pulls Away Muscle Tone 5 min: Active Motion Color 5 min: Body [place], Extremities Blue SCORE 5 MIN: 9 INFANT INFORMATION BABY A Gestational Age at Delivery: 38.1 Gestational Status: Early Term- 37- 38.6 Weeks Infant Outcome : Liveborn Condition : Stable Infant Sex: Male IDENTIFICATION BABY A Verification Date/Time: 08/09/2018 09:56 ID Band Number: [id number] Mother's Name Verified: Yes Infant RN Verifying : Miguel Orellana RN/D Amaury RN WEIGHT/LENGTH BABY A Birthweight (gm): 3460 Infant Weight (lb): 7 Infant Weight (oz): 10 Length (in): 20.00 Length (cm): 50.80 CORD INFORMATION BABY A No. Cord Vessels: 3 Nuchal Cord : N/A Cord Blood Taken: Yes-For Storage (Mom's Blood type +) Infant Suction: None ASSESSMENT BABY A Infant Complications: None Physical Findings at Delivery: Within Normal Limits Infant Respirations: Appears Normal Skin to Skin: Yes Skin to Skin Time (min): 60 Office Analyst/ALS Called : No Infant Care By: Jonah Rebolledo RN Transferred To: Remains with Mother BABY B INFORMATION : N/A SIGNATURES Assignment: Severo Mendoza MD Signature: with User ID: [email or web address] : with User ID: [email or web address] : I was personally available for consultation and serving as supervising physician for the MLP. : I was personally available for consultation and serving as supervising physician for the MLP.
== END 2018-08-10 17:35 | disposition home or self-care (01) | DRG 807 ==
LOC: LC 08:03 → LR 08:40 → 2S 12:35
PROVIDERS: ADMIT Obstetrics & Gynecology Gynecology; ATTEND Obstetrics & Gynecology Gynecology
PROC: 10E0XZZ Delivery of Products of Conception, External Approach (ICD-10-PCS; principal; 2018-08-09)
DX: O24.429 Gestational diabetes mellitus in childbirth, unspecified control (principal); Z37.0 Single live birth; O99.344 Other mental disorders complicating childbirth; F32.9 Major depressive disorder, single episode, unspecified; F41.9 Anxiety disorder, unspecified; Z86.19 Personal history of other infectious and parasitic diseases; Z3A.38 38 weeks gestation of pregnancy; O62.3 Precipitate labor; Z87.891 Personal history of nicotine dependence
CPT/HCPCS: 36415; 59025; 80307; 80349; 81005; 82962; 85025; 86592; 86850; 86900; 86901; G0480; J2590; J3490

== ENCOUNTER → 2019-01-05 | Outpatient (CLI) | payer MEDICAID ==
[2019-01-05 18:25] LABS: BACTERIA (WET MOUNT) 4+ BACTERIA SEEN; EPITHELIALS (WET MOUNT) 4+ EPITHELIALS SEEN; T.VAGINALIS (WET MOUNT) NO TRICHOMONAS SEEN; WBCS (WET MOUNT) 3+ WBCS SEEN; YEAST (WET MOUNT) BUDDING YEAST SEEN
[2019-01-05 18:40] LABS: ABSOLUTE BASOPHILS # (AUTO) 0.1 10^3/uL (0.0-0.2); ABSOLUTE EOSINOPHILS # (AUTO) 0.1 10^3/uL (0.0-0.6); ABSOLUTE LYMPHOCYTES (AUTO) 2.8 10^3/uL (0.5-4.7); ABSOLUTE MONOCYTES (AUTO) 0.5 10^3/uL (0.1-1.4); ABSOLUTE NEUT (AUTO) 5.3 10^3/uL (1.7-8.2); BASOPHILS % (AUTO) 0.9 % (0-2); EOSINOPHILS % (AUTO) 1.4 % (0-6); HEMATOCRIT 36.1 % (36.0-47.0); HEMOGLOBIN 11.7 g/dL (12.0-15.5); LYMPHOCYTES % (AUTO) 31.8 % (13-45); MEAN CORPUSCULAR HEMOGLOBIN 25.1 pg (27.0-33.4); MEAN CORPUSCULAR HGB CONC 32.5 g/dL (32.0-36.0); MEAN CORPUSCULAR VOLUME 77 fl (80-97); PLATELET COUNT 301 10^3/uL (150-450); RED BLOOD COUNT 4.68 10^6/uL (3.72-5.28); SEGMENTED NEUTROPHILS % (AUTO) 59.9 % (42-78); TOTAL CELLS COUNTED % (AUTO) 100 %; WHITE BLOOD COUNT 8.9 10^3/uL (4.0-10.5)
[2019-01-05 19:54] LABS: CHLAM PCR NOT DETECTED (NOT DETECT)
[2019-01-05 20:02] LABS: ALBUMIN 4.3 g/dL (3.5-5.0); ALKALINE PHOSPHATASE 45 U/L (38-126); ANION GAP 12 (5-19); ASPARTATE AMINO TRANSFERASE 17 U/L (14-36); BILIRUBIN,DIRECT 0.1 mg/dL (0.0-0.4); BILIRUBIN,TOTAL 0.2 mg/dL (0.2-1.3); BLOOD UREA NITROGEN 13 mg/dL (7-20); CALCIUM 9.3 mg/dL (8.4-10.2); CARBON DIOXIDE 24 mmol/L (22-30); CHLORIDE 103 mmol/L (98-107); GLUCOSE 110 mg/dL (75-110); POTASSIUM 4.4 mmol/L (3.6-5.0); TOTAL PROTEIN 7.1 g/dL (6.3-8.2)
== END ==
LOC: LAB 18:15
PROVIDERS: ATTEND Nurse Practitioner Acute Care
DX: M54.5 Low back pain (principal); R10.9 Unspecified abdominal pain
CPT/HCPCS: 36415; 80053; 85025; 87086; 87210; 87491; 87591

== ENCOUNTER 2019-01-08 17:00 | Emergency (ER) | payer MEDICAID ==
--- NOTE | 2019-01-08 17:14 | ER Document Report ---
ED Medical Screen (RME) - General Chief Complaint: Flank Pain Stated Complaint: BACK PAIN Time Seen by Provider: 01/08/19 17:09 Primary Care Provider: DAXA PARKER NP [Primary Care Provider] - Follow up as needed Information source: Patient Notes: Patient presents complaining of right flank pain that radiates around to right side of abdomen and to the right hip area. Patient denies any fever vomiting or diarrhea. Patient does report nausea. No urinary symptoms. hx: Diabetes, PCOS, cholecystectomy, appendectomy I have greeted and performed a rapid initial assessment of this patient. A comprehensive ED assessment and evaluation of the patient, analysis of test results and completion of the medical decision making process will be conducted by additional ED providers. TRAVEL OUTSIDE OF THE [place] IN LAST 30 DAYS: No - Related Data Allergies/Adverse Reactions: No Known Allergies Allergy (Verified 01/08/19 17:06) Past Medical History - Social History Chew tobacco use (# tins/day): No Frequency of alcohol use: None Drug Abuse: None - Past Medical History Cardiac Medical History: Reports: Hx Hypercholesterolemia Pulmonary Medical History: Reports: Hx Asthma, Hx Bronchitis Endocrine Medical History: Reports: Hx Diabetes Mellitus Type 2 Renal/ Medical History: Reports: Hx Ovarian Cysts, Hx Pelvic Inflammatory Disease. Denies: Hx Peritoneal Dialysis Psychiatric Medical History: Reports: Hx Anxiety, Hx Depression Past Surgical History: Reports: Hx Adenoidectomy, Hx Appendectomy, Hx Cholecystectomy, Hx Myringotomy, Hx Oral Surgery - [place] teeth, Hx Tonsillectomy, Other - Foreign body removed from right eye - Immunizations Hx Diphtheria, Pertussis, Tetanus Vaccination: Yes Physical Exam - Vital signs Vitals: Temp Pulse Resp BP Pulse Ox 98.0 F 79 16 131/74 H 99 01/08/19 17:04 01/08/19 17:04 01/08/19 17:04 01/08/19 17:04 01/08/19 17:04 - Back Back: CVA tenderness - Right Course - Vital Signs Vital signs: Temp Pulse Resp BP Pulse Ox 98.0 F 79 16 131/74 H 99 01/08/19 17:04 01/08/19 17:04 01/08/19 17:04 01/08/19 17:04 01/08/19 17:04 Doctor's Discharge - Discharge Referrals: DAXA PARKER NP [Primary Care Provider] - Follow up as needed
[2019-01-08 17:53] LABS: ABSOLUTE BASOPHILS # (AUTO) 0.2 10^3/uL (0.0-0.2); ABSOLUTE EOSINOPHILS # (AUTO) 0.1 10^3/uL (0.0-0.6); ABSOLUTE LYMPHOCYTES (AUTO) 3.1 10^3/uL (0.5-4.7); ABSOLUTE MONOCYTES (AUTO) 0.4 10^3/uL (0.1-1.4); ABSOLUTE NEUT (AUTO) 5.1 10^3/uL (1.7-8.2); BASOPHILS % (AUTO) 2.4 % (0-2); EOSINOPHILS % (AUTO) 1.2 % (0-6); HEMATOCRIT 36.8 % (36.0-47.0); HEMOGLOBIN 11.8 g/dL (12.0-15.5); LYMPHOCYTES % (AUTO) 34.6 % (13-45); MEAN CORPUSCULAR HEMOGLOBIN 24.4 pg (27.0-33.4); MEAN CORPUSCULAR VOLUME 76 fl (80-97); MONOCYTES % (AUTO) 4.7 % (3-13); PLATELET COUNT 358 10^3/uL (150-450); RED BLOOD COUNT 4.81 10^6/uL (3.72-5.28); RED CELL DISTRIBUTION WIDTH 16.9 % (11.5-14.0); SEGMENTED NEUTROPHILS % (AUTO) 57.1 % (42-78); TOTAL CELLS COUNTED % (AUTO) 100 %; WHITE BLOOD COUNT 8.9 10^3/uL (4.0-10.5)
[2019-01-08 18:10] LABS: ALBUMIN 4.3 g/dL (3.5-5.0); ALKALINE PHOSPHATASE 45 U/L (38-126); ANION GAP 9 (5-19); ASPARTATE AMINO TRANSFERASE 18 U/L (14-36); BILIRUBIN,DIRECT 0.1 mg/dL (0.0-0.4); BILIRUBIN,TOTAL 0.3 mg/dL (0.2-1.3); BLOOD UREA NITROGEN 12 mg/dL (7-20); CALCIUM 9.7 mg/dL (8.4-10.2); CARBON DIOXIDE 26 mmol/L (22-30); CHLORIDE 102 mmol/L (98-107); GLUCOSE 150 mg/dL (75-110); POTASSIUM 3.9 mmol/L (3.6-5.0); TOTAL PROTEIN 7.4 g/dL (6.3-8.2)
[2019-01-08 20:24] LABS: APPEARANCE,URINE SLIGHTLY-CLOUDY; BILIRUBIN,URINE NEGATIVE (NEGATIVE); COLOR,URINE YELLOW; GLUCOSE, URINE NEGATIVE (NEGATIVE); KETONES,URINE NEGATIVE (NEGATIVE); LEUKOCYTE ESTERASE,URINE LARGE (NEGATIVE); NITRITE,URINE NEGATIVE (NEGATIVE); PROTEIN,URINE NEGATIVE (NEGATIVE); URINE SPECIFIC GRAVITY 1.017; UROBILINOGEN,URINE NEGATIVE mg/dL (<2.0)
--- NOTE | 2019-01-08 21:03 | ER Document Report ---
ED General - General Chief Complaint: Flank Pain Stated Complaint: BACK PAIN Time Seen by Provider: 01/08/19 17:09 Primary Care Provider: DAXA PARKER, JOURNEYMAN POWER PLANT OPERATOR [NURSE PRACTITIONER] - Follow up as needed Notes: Patient is a 28-year-old female that presents to the emergency department for chief complaint of right flank pain. Patient states that she is been having pain that she describes as a dull ache in her right flank, is been going on for approximately 5 days, and on and off she will have a sharp severe pain ass ociated with it as well. She is had some decreased urination, but denies any urinary frequency, dysuria or hematuria. Denies prior history of kidney stones. She states she is had UTIs before but nothing this felt like this. She has a history of ovarian cyst that occasionally felt similar to this. She denies any any fevers, chills, night sweats, chest pain or shortness of breath. She had some mild nausea but no vomiting. She currently describes her pain as a dull ache and rates it as a 6 out of 10 she did take a Lortab prior to ED arrival. No other complaints at this time. Past Medical History: Diabetes mellitus, [id number]-vwfigltqy Past Surgical History: Cholecystectomy, appendectomy Social History: Denies tobacco, or illicit drug use, admits to rare alcohol use. Family History: Reviewed and noncontributory for presenting illness Allergies: Reviewed, see documented allergy list. REVIEW OF SYSTEMS: Other than noted above, the 12 point review of systems was reviewed with the patient and were negative, all pertinent findings are included in the HPI. PHYSICAL EXAMINATION: Vital signs reviewed, nursing noted reviewed. GENERAL: Well-appearing, well-nourished and in no acute distress. HEAD: Atraumatic, normocephalic. EYES: Eyes appear normal, extraocular movements intact, sclera anicteric, conjunctiva are normal. ENT: nares patent, oropharynx clear without exudates. Moist mucous membranes. NECK: Normal range of motion, supple without lymphadenopathy LUNGS: Breath sounds clear to auscultation bilaterally and equal. No wheezes rales or rhonchi. HEART: Regular rate and rhythm without murmurs ABDOMEN: Soft, mild right CVA tenderness to palpation, normoactive bowel sounds. No rebound, guarding, or rigidity. No masses appreciated. EXTREMITIES: Nontender, good range of motion, no pitting or edema. NEUROLOGICAL: No focal neurological deficits. Moves all extremities spontaneously Motor and sensory grossly intact on exam. PSYCH: Normal mood, normal affect. SKIN: Warm, Dry, normal turgor, no rashes or lesions noted on exposed skin TRAVEL OUTSIDE OF THE [place] IN LAST 30 DAYS: No - Related Data Allergies/Adverse Reactions: No Known Allergies Allergy (Verified 01/08/19 17:06) Past Medical History - General Information source: Patient - Social History Smoking Status: Never Smoker Chew tobacco use (# tins/day): No Frequency of alcohol use: None Drug Abuse: None Family History: Arthritis, CAD, COPD, CVA, DM, Hyperlipidemia, Hypertension, Malignancy, Thyroid Disfunction Patient has suicidal ideation: No Patient has homicidal ideation: No - Past Medical History Cardiac Medical History: Reports: Hx Hypercholesterolemia Pulmonary Medical History: Reports: Hx Asthma, Hx Bronchitis Endocrine Medical History: Reports: Hx Diabetes Mellitus Type 2 Renal/ Medical History: Reports: Hx Ovarian Cysts, Hx Pelvic Inflammatory Disease. Denies: Hx Peritoneal Dialysis Psychiatric Medical History: Reports: Hx Anxiety, Hx Depression Past Surgical History: Reports: Hx Adenoidectomy, Hx Appendectomy, Hx Cholecystectomy, Hx Myringotomy, Hx Oral Surgery - [place] teeth, Hx Tonsillectomy, Other - Foreign body removed from right eye - Immunizations Hx Diphtheria, Pertussis, Tetanus Vaccination: Yes Physical Exam - Vital signs Vitals: Temp Pulse Resp BP Pulse Ox 98.0 F 79 16 131/74 H 99 01/08/19 17:04 01/08/19 17:04 01/08/19 17:04 01/08/19 17:04 01/08/19 17:04 Course - Re-evaluation Re-evalutation: Patient seen and examined vital signs reviewed. Laboratory data and/or imaging were ordered as appropriate for the patient's presenting symptoms and complaint, with consideration of any critical or life threatening conditions that may be associated with their obtained history and exam as noted above. Patient was treated with IM Rocephin, and Toradol after negative hCG Results were reviewed when available and demonstrated leukocyte esterase and white blood cells in the urine, concern for possible UTI, CT imaging of the abdomen and pelvis without contrast was negative for renal stone or hydroureter or hydronephrosis. There is incidental liver lesion, this was described to the patient and advised follow-up with her primary care. Blood work was otherwise unremarkable. The patient was re-evaluated and was stable Evaluation was most consistent with UTI, possible early pyelonephritis, will treat with Rocephin in the ED, and Omnicef for 7 days, advised follow-up with primary care Results were discussed with the patient at this point, after careful consideration I feel that that patient can be discharged from the emergency department, the patient was educated treatments and reasons to return to the emergency department based on their presumed diagnosis as noted above, they were advised to followup with a primary care physician in 2-3 days. Patient was agreeable to plan of care. *Note is created using voice recognition software and may contain spelling, syntax or grammatical errors. Laboratory 01/08/19 01/08/19 01/08/19 17:32 17:32 17:32 WBC 8.9 RBC 4.81 Hgb 11.8 L Hct 36.8 MCV 76 L MCH 24.4 L MCHC 32.0 RDW 16.9 H Plt Count 358 Lymph % (Auto) 34.6 [place] % (Auto) 4.7 Eos % (Auto) 1.2 Baso % (Auto) 2.4 H Absolute Neuts (auto) 5.1 Absolute Lymphs (auto) 3.1 Absolute Monos (auto) 0.4 Absolute Eos (auto) 0.1 Absolute Basos (auto) 0.2 Seg Neutrophils % 57.1 Sodium 136.6 L Potassium 3.9 Chloride 102 Carbon Dioxide 26 Anion Gap 9 BUN 12 Creatinine 0.91 Est GFR ( Amer) > 60 Est GFR (MDRD) Non-Af > 60 Glucose 150 H Calcium 9.7 Total Bilirubin 0.3 Direct Bilirubin 0.1 Neonat Total Bilirubin Not Reportable Neonat Direct Bilirubin Not Reportable Neonat Indirect Bili Not Reportable AST 18 ALT 19 Alkaline Phosphatase 45 Total Protein 7.4 Albumin 4.3 Serum HCG, Qual NEGATIVE Urine Color Urine Appearance Urine pH Ur Specific [place] Urine Protein Urine Glucose (UA) Urine Ketones Urine Blood Urine Nitrite Urine Bilirubin Urine Urobilinogen Ur Leukocyte Esterase Urine WBC (Auto) Urine RBC (Auto) U Hyaline Cast (Auto) Squamous Epi Cells Auto Urine Mucus (Auto) Urine Ascorbic Acid 01/08/19 17:36 WBC RBC Hgb Hct MCV MCH MCHC RDW Plt Count Lymph % (Auto) [place] % (Auto) Eos % (Auto) Baso % (Auto) Absolute Neuts (auto) Absolute Lymphs (auto) Absolute Monos (auto) Absolute Eos (auto) Absolute Basos (auto) Seg Neutrophils % Sodium Potassium Chloride Carbon Dioxide Anion Gap BUN Creatinine Est GFR ( Amer) Est GFR (MDRD) Non-Af Glucose Calcium Total Bilirubin Direct Bilirubin Neonat Total Bilirubin Neonat Direct Bilirubin Neonat Indirect Bili AST ALT Alkaline Phosphatase Total Protein Albumin Serum HCG, Qual Urine Color YELLOW Urine Appearance SLIGHTLY-CLOUDY Urine pH 5.0 Ur Specific [place] 1.017 Urine Protein NEGATIVE Urine Glucose (UA) NEGATIVE Urine Ketones NEGATIVE Urine Blood NEGATIVE Urine Nitrite NEGATIVE Urine Bilirubin NEGATIVE Urine Urobilinogen NEGATIVE Ur Leukocyte Esterase LARGE H Urine WBC (Auto) 11 Urine RBC (Auto) 4 U Hyaline Cast (Auto) 1 Squamous Epi Cells Auto 11 Urine Mucus (Auto) RARE Urine Ascorbic Acid NEGATIVE Abdomen/Pelvis CT 01/08/19 21:03 IMPRESSION: No acute abnormality within the abdomen or pelvis. Hypodense lesion located within the right hepatic lobe, indeterminate on this examination. Recommend correlation with multiphasic CT or MR of the abdomen. TECHNICAL DOCUMENTATION: Quality ID # 436: Final reports with documentation of one or more dose reduction techniques (e.g., Automated exposure control, adjustment of the mA and/or kV according to patient size, use of iterative reconstruction technique) copyright 2011 [employer]- All Rights Reserved - Vital Signs Vital signs: Temp Pulse Resp BP Pulse Ox 98.0 F 79 16 131/74 H 99 01/08/19 17:04 01/08/19 17:04 01/08/19 17:04 01/08/19 17:04 01/08/19 17:04 - Laboratory Result Diagrams: 01/08/19 17:32 01/08/19 17:32 Laboratory results interpreted by me: 01/08/19 01/08/19 01/08/19 17:32 17:32 17:36 Hgb 11.8 L MCV 76 L MCH 24.4 L RDW 16.9 H Baso % (Auto) 2.4 H Sodium 136.6 L Glucose 150 H Ur Leukocyte Esterase LARGE H Discharge - Discharge Clinical Impression: UTI (urinary tract infection) Qualifiers: Urinary tract infection type: site unspecified Hematuria presence: without hematuria Qualified Code(s): N39.0 - Urinary tract infection, site not specified Condition: Stable Disposition: HOME, SELF-CARE Instructions: Urinary Tract Infection ([facility]) Additional Instructions: Please complete the entire course of antibiotics as prescribed, take the nausea and pain medications only as needed, and follow-up with your primary care physician. Prescriptions: Cefdinir 300 mg PO BID #14 capsule Hydrocodone/Acetaminophen [[place] 5-325 mg Tablet] 1 tab PO Q8H PRN #10 tablet PRN Reason: flank pain Ondansetron [Zofran Odt 4 mg Tablet] 1 tab PO Q8H PRN #15 tab.rapdis PRN Reason: For Nausea/Vomiting Referrals: DAXA PARKER, JOURNEYMAN POWER PLANT OPERATOR [NURSE PRACTITIONER] - Follow up in 3-5 days
--- NOTE | 2019-01-08 21:36 | RADIOLOGY REPORT (SQ) ---
EXAM DESCRIPTION: CT ABDOMEN PELVIS WITHOUT IV CONTRAST COMPLETED DATE/TME: 01/08/2019 21:03 CLINICAL HISTORY: 28 years, Female, right flank pain COMPARISON: None. TECHNIQUE: Noncontrast CT of the abdomen/pelvis was performed. Coronal and sagittal reformations were created. Images stored on PACS. All CT scanners at this facility use dose modulation, iterative reconstruction, and/or weight based dosing when appropriate to reduce radiation dose to as low as reasonably achievable (ALARA). [facility]: Dose Right [facility]: CareDose [facility]: Dose Right [facility]: Teradose 4D [facility]: [employer] LIMITATIONS: None. FINDINGS: Limited evaluation of the lower chest reveals clear lung bases. Evaluation of the liver parenchyma reveals a hypodense lesion located within the right hepatic lobe on image 29 of series 3 measuring 1.6 x 1.2 cm in size. Liver otherwise appears normal in its noncontrast appearance. The spleen, pancreas, and both adrenal glands appear normal. Gallbladder is absent. Both kidneys appear normal in their noncontrast appearance. No hydronephrosis or hydroureter. The urinary bladder is partially collapsed, thus its evaluation is limited. Uterus and both ovaries show no suspicious abnormality. Small and large bowel are normal in caliber. No evidence of bowel obstruction. The appendix is not clearly delineated. Vascular structures are normal in their noncontrast appearance. No lymphadenopathy or drainable fluid collections. Bone windows show no destructive osseous lesions. A benign bone island is noted about the right anterior acetabulum. IMPRESSION: No acute abnormality within the abdomen or pelvis. Hypodense lesion located within the right hepatic lobe, indeterminate on this examination. Recommend correlation with multiphasic CT or MR of the abdomen. TECHNICAL DOCUMENTATION: Quality ID # 436: Final reports with documentation of one or more dose reduction techniques (e.g., Automated exposure control, adjustment of the mA and/or kV according to patient size, use of iterative reconstruction technique) copyright 2011 [employer]- All Rights Reserved
[2019-01-08] MEDS ORDERED: CEFTRIAXONE INJ 1000 MG VIAL IM ONE (21:43)
[2019-01-08] MEDS ORDERED: LIDOCAINE 1% INJ-PF (10 MG/ML) 30 ML SDV INFIL ONE (21:43)
[2019-01-08] MEDS ORDERED: KETOROLAC TROMETHAMINE 60 MG/2 ML SDV IM ONE (21:44)
[2019-01-08 22:15] VITALS: BP 118/75
== END 2019-01-08 22:21 | disposition home or self-care (01) ==
LOC: ER 17:00
DX: N39.0 Urinary tract infection, site not specified (principal); K76.9 Liver disease, unspecified; R10.9 Unspecified abdominal pain; M54.9 Dorsalgia, unspecified; R33.9 Retention of urine, unspecified; E11.9 Type 2 diabetes mellitus without complications; J45.909 Unspecified asthma, uncomplicated
CPT/HCPCS: 99284; 96374; 96375; 36415; 87086; 84703; 85025; 80053; 81001; 74176; J1885; J3490; J0696

== ENCOUNTER → 2019-08-22 | Outpatient (CLI) | payer MEDICAID | LOC: OD 14:50 | DX: F31.9 Bipolar disorder, unspecified (principal) | CPT/HCPCS: 36415; 80178 ==

== ENCOUNTER → 2019-11-06 | Outpatient (CLI) | payer MEDICAID | LOC: OD 16:12 | PROVIDERS: ATTEND Nurse Practitioner Psychiatric/Mental Health | DX: F31.9 Bipolar disorder, unspecified (principal) | CPT/HCPCS: 36415; 80178 ==

== ENCOUNTER 2020-04-16 11:53 | Emergency (ER) | payer MEDICAID ==
--- NOTE | 2020-04-16 12:51 | ER Document Report ---
ED Medical Screen (RME) - General Chief Complaint: Flank Pain Stated Complaint: ABDOMINAL/BACK PAIN Time Seen by Provider: 04/16/20 12:23 Primary Care Provider: CHASE GUILLEN PMHNP- [Primary Care Provider] - Follow up as needed TRAVEL OUTSIDE OF THE U.S. IN LAST 30 DAYS: No - HPI Notes: 04/16/20 12:36 29-year-old female presents to the emergency room today for evaluation of right flank pain that radiates to her right pelvic area that started 1 day ago. She states she leaned over to picker/puller something, felt severe pain, 4 out of 5, throbbing. States she tried [id number] Tylenol and Flexeril without any relief. Denies any trauma or falling. Last menstrual cycle 03/18/2020. Patient states that the pain does shoot to her right rib. Denies any chest pain, kenisha rtness of breath, nausea, vomiting, diarrhea. Denies any history of nephrolithiasis. Denies any vaginal bleeding or vaginal discharge. I have greeted and performed a rapid initial assessment of this patient. A comprehensive ED assessment and evaluation of the patient, analysis of test results and completion of the medical decision making process will be conducted by additional ED providers. PHYSICAL EXAMINATION: GENERAL: Well-appearing, well-nourished and in mild distress CV: s1, s2 regular LUNGS: No respiratory distress abd: R pelvic tenderness on palpation, R CVA tenderness on palpation. Musculoskeletal: Normal range of motion. NEUROLOGICAL: Normal speech, normal gait. SKIN: Warm, Dry, normal turgor, no rashes or lesions noted. The patient was evaluated during a global COVID-19 pandemic and that diagnosis was suspected/considered upon their initial presentation. Their evaluation, treatment and testing was consistent with current guidelines for patients who present with complaints or symptoms and may be related to COVID-19. - Related Data Allergies/Adverse Reactions: No Known Allergies Allergy (Verified 01/08/19 17:06) Home Medications: [place]. Buspar Past Medical History - Social History Chew tobacco use (# tins/day): No Frequency of alcohol use: None Drug Abuse: None - Past Medical History Cardiac Medical History: Reports: Hx Hypercholesterolemia Pulmonary Medical History: Reports: Hx Asthma, Hx Bronchitis Endocrine Medical History: Reports: Hx Diabetes Mellitus Type 2 Renal/ Medical History: Reports: Hx Ovarian Cysts, Hx Pelvic Inflammatory Disease. Denies: Hx Peritoneal Dialysis Psychiatric Medical History: Reports: Hx Anxiety, Hx Depression Past Surgical History: Reports: Hx Adenoidectomy, Hx Appendectomy, Hx Cholecystectomy, Hx Myringotomy, Hx Oral Surgery - [place] teeth, Hx Tonsill ectomy, Other - Foreign body removed from right eye - Immunizations Hx Diphtheria, Pertussis, Tetanus Vaccination: Yes Physical Exam - Vital signs Vitals: Temp Pulse Resp BP Pulse Ox 97.7 F 78 20 126/78 H 100 04/16/20 11:59 04/16/20 11:59 04/16/20 11:59 04/16/20 11:59 04/16/20 11:59 Course - Vital Signs Vital signs: Temp Pulse Resp BP Pulse Ox 97.7 F 78 20 126/78 H 100 04/16/20 11:59 04/16/20 11:59 04/16/20 11:59 04/16/20 11:59 04/16/20 11:59 Doctor's Discharge - Discharge Referrals: CHASE GUILLEN, PMHNP-BC [Primary Care Provider] - Follow up as needed
[2020-04-16 14:00] LABS: ABSOLUTE EOSINOPHILS # (AUTO) 0.1 10^3/uL (0.0-0.6); ABSOLUTE LYMPHOCYTES (AUTO) 2.7 10^3/uL (0.5-4.7); ABSOLUTE MONOCYTES (AUTO) 0.6 10^3/uL (0.1-1.4); ABSOLUTE NEUT (AUTO) 7.8 10^3/uL (1.7-8.2); BASOPHILS % (AUTO) 0.4 % (0-2); EOSINOPHILS % (AUTO) 0.7 % (0-6); HEMATOCRIT 44.3 % (36.0-47.0); HEMOGLOBIN 14.9 g/dL (12.0-15.5); MEAN CORPUSCULAR HEMOGLOBIN 28.4 pg (27.0-33.4); MEAN CORPUSCULAR HGB CONC 33.5 g/dL (32.0-36.0); MEAN CORPUSCULAR VOLUME 85 fl (80-97); MONOCYTES % (AUTO) 5.5 % (3-13); PLATELET COUNT 360 10^3/uL (150-450); RED BLOOD COUNT 5.23 10^6/uL (3.72-5.28); RED CELL DISTRIBUTION WIDTH 14.8 % (11.5-14.0); SEGMENTED NEUTROPHILS % (AUTO) 69.4 % (42-78); TOTAL CELLS COUNTED % (AUTO) 100 %; WHITE BLOOD COUNT 11.2 10^3/uL (4.0-10.5)
[2020-04-16 14:10] LABS: APPEARANCE,URINE CLOUDY; BILIRUBIN,URINE NEGATIVE (NEGATIVE); COLOR,URINE YELLOW; GLUCOSE, URINE NEGATIVE (NEGATIVE); KETONES,URINE NEGATIVE (NEGATIVE); LEUKOCYTE ESTERASE,URINE LARGE (NEGATIVE); NITRITE,URINE NEGATIVE (NEGATIVE); PROTEIN,URINE NEGATIVE (NEGATIVE); URINE SPECIFIC GRAVITY 1.016; UROBILINOGEN,URINE NEGATIVE mg/dL (<2.0)
[2020-04-16 14:19] LABS: ALBUMIN 4.9 g/dL (3.5-5.0); ALKALINE PHOSPHATASE 45 U/L (38-126); ANION GAP 10 (5-19); ASPARTATE AMINO TRANSFERASE 20 U/L (14-36); BILIRUBIN,DIRECT 0.2 mg/dL (0.0-0.4); BILIRUBIN,TOTAL 0.4 mg/dL (0.2-1.3); BLOOD UREA NITROGEN 9 mg/dL (7-20); CALCIUM 10.1 mg/dL (8.4-10.2); CARBON DIOXIDE 27 mmol/L (22-30); CHLORIDE 101 mmol/L (98-107); GLUCOSE 122 mg/dL (75-110); POTASSIUM 4.5 mmol/L (3.6-5.0); TOTAL PROTEIN 8.6 g/dL (6.3-8.2)
[2020-04-16] MEDS ORDERED: ACETAMINOPHEN 325 MG TABLET PO ONE (14:51)
--- NOTE | 2020-04-16 15:26 | RADIOLOGY REPORT (SQ) ---
EXAM DESCRIPTION: U/S RETROPERITON (RENAL/AORTA) IMAGES COMPLETED DATE/TIME: 04/16/2020 3:14 pm REASON FOR STUDY: R flank pain x 1 day. no trauma. No nephrolithias COMPARISON: None. TECHNIQUE: Dynamic and static grayscale images acquired of the kidneys and bladder and recorded on P ACS. Additional selected color Doppler and spectral images recorded. LIMITATIONS: None. FINDINGS: RIGHT KIDNEY: The right kidney measures 10.3 x 5.7 x 4.4 cm, normal size. Normal echogeni city. No solid or suspicious masses. No hydronephrosis. No calcifications. LEFT KIDNEY: The left kidney measures 11.4 x 4.8 x 4.6 cm, normal Normal size. Normal echogenicity. No solid or suspicious masses. No hydronephrosis. No calcifications. BLADDER: The urinary bladder is decompressed. OTHER FINDINGS: No other significant finding. IMPRESSION: 1. NORMAL RENAL ULTRASOUND. TECHNICAL DOCUMENTATION: JOB ID: [id number] 2010 [employer]- All Rights Reserved Reading location - IP/workstation name: [email or web address]
--- NOTE | 2020-04-16 15:29 | RADIOLOGY REPORT (SQ) ---
EXAM DESCRIPTION: U/S NON-OB PELVIS TV W/O DOP IMAGES COMPLETED DATE/TIME: 04/16/2020 3:14 pm REASON FOR STUDY: R pelvic pain x 1 day, no vag bleeding/discharge COMPARISON: None. TECHNIQUE: Dynamic and static grayscale images acquired of the pelvis via transvaginal approach and recorded on PACS. Additional selected color Doppler and spectral images recorded. LIMITATIONS: None. FINDINGS: UTERUS: Contour normal. No mass. ENDOMETRIAL STRIPE: No focal or generalized thickening. No masses. CERVIX: No nabothian cysts. RIGHT OVARY AND DOPPLER: Normal size. A few small ovarian follicles. Normal arterial vascular flow without evidence for torsion. LEFT OVARY AND DOPPLER: Normal size. No worrisome masses. Normal arterial vascular flow without evide nce for torsion. FREE FLUID: Mild free fluid in the cul-de-sac may be on a physiologic basis. OTHER: No other significant finding. MEASUREMENTS: UTERUS: 8.1 x 5.2 x 4.3 cm ENDOMETRIAL STRIPE: 9.7 mm RIGHT OVARY: 3.1 x 2.0 x 2.7 cm LEFT OVARY: 2.5 x 1.6 x 1.4 cm IMPRESSION: 1. Mild free fluid in the cul de sac may be on a physiologic basis. 2. A few small right ovarian follicles. TECHNICAL DOCUMENTATION: JOB ID: [id number] [employer]- All Rights Reserved Rev Reading location - IP/workstation name: [email or web address]
[2020-04-16] MEDS ORDERED: KETOROLAC TROMETHAMINE 60 MG/2 ML SDV IM ONE (15:33)
[2020-04-16] MEDS ORDERED: METAXALONE 800 MG TABLET PO ONE (15:33)
--- NOTE | 2020-04-16 17:10 | ER Document Report ---
ED General - General Chief Complaint: Flank Pain Stated Complaint: ABDOMINAL/BACK PAIN Time Seen by Provider: 04/16/20 12:23 Primary Care Provider: CHASE GUILLEN PMHNP- [NO LOCAL MD] - Follow up as needed Mode of Arrival: Ambulatory Information source: Patient TRAVEL OUTSIDE OF THE [place] IN LAST 30 DAYS: No - HPI Notes: This patient presents complaining of right low back pain radiating around to the right lower quadrant of her abdomen. To me she reports that it started suddenly yesterday when she was bending over to lift something. She leaned forward and lifted something that was not particularly heavy and then as she stood up again had immediate pain in her low back. This radiated towards her buttock and around her hip towards the front. She denies any radiation down her leg. She has had no urinary retention or stool incontinence. She denies any saddle anesthesia. She tried some Tylenol and a tablet of someone else's Flexeril at home last night without much improvement. She has not taken anything today. Although she complains of fairly intense pain I saw her ambulating through the department without difficulty when she was being triaged. She denies any history of chronic back pain. She denies any unusual vaginal bleeding or discharge. She denies . She denies any diarrhea or constipation. She denies any bloody or black dark tarry stools. She is otherwise in her usual state of health. - Related Data Allergies/Adverse Reactions: No Known Allergies Allergy (Verified 01/08/19 17:06) Home Medications: [place]. Buspar Past Medical History - General Information source: Patient - Social History Smoking Status: Never Smoker Chew tobacco use (# tins/day): No Frequency of alcohol use: None Drug Abuse: None Family History: Arthritis, CAD, COPD, CVA, DM, Hyperlipidemia, Hypertension, Malignancy, Thyroid Disfunction - Medical History Medical History: Other Notes: Past medical history as documented in electronic health record is reviewed. - Past Medical History Cardiac Medical History: Reports: Hx Hypercholesterolemia Pulmonary Medical History: Reports: Hx Asthma, Hx Bronchitis Endocrine Medical History: Reports: Hx Diabetes Mellitus Type 2 Renal/ Medical History: Reports: Hx Ovarian Cysts, Hx Pelvic Inflammatory Dis ease. Denies: Hx Peritoneal Dialysis Psychiatric Medical History: Reports: Hx Anxiety, Hx Depression Past Surgical History: Reports: Hx Adenoidectomy, Hx Appendectomy, Hx Cholecystectomy, Hx Myringotomy, Hx Oral Surgery - [place] teeth, Hx Tonsillect [place], Other - Foreign body removed from right eye - Immunizations Hx Diphtheria, Pertussis, Tetanus Vaccination: Yes Review of Systems - Review of Systems Notes: All other systems were reviewed and are negative or noncontributory except as noted in the present illness. Physical Exam - Vital signs Vitals: Temp Pulse Resp BP Pulse Ox 97.7 F 78 20 126/78 H 100 04/16/20 11:59 04/16/20 11:59 04/16/20 11:59 04/16/20 11:59 04/16/20 11:59 - Notes Notes: General: This is a well-developed well-nourished female in some discomfort from her back with a very flat affect in no acute distress. Vital signs and nursing chief complaint and documentation are reviewed. Lungs: Clear to auscultation all kra[place]. Heart: Regular rate and rhythm no murmur. Back: Normal curvatures with some tenderness to palpation the right more region. Abdomen: Moderately obese, soft, mild right lower quadrant direct tenderness. No guarding masses rebound or organomegaly. Extremities: Without clubbing cyanosis or edema. Skin: Warm moist good turgor no rashes. Neuro: Patient has normal strength in all muscle groups in her lower extremities including toe and foot dorsiflexors and plantar flexors. She can lift both legs and extend both knees without difficulty. She is intact to light touch bilaterally. Course - Re-evaluation Re-evalutation: 04/16/20 17:09 Patient was initially given some Tylenol for pain. We are waiting for her test. Labs and ultrasounds ordered in triage were performed and were normal or nondiagnostic. Once patient's test was known to be negative I then ordered some Toradol and a muscle relaxant for her. Although she claimed not have much relief from it she actually was moving about in bed better than she was initially. We reviewed all of her lab and imaging results. There is nothing to suggest a serious process at this point. I think she simply has a lumbar strain which can be treated conservatively with a muscle relaxant and anti-inflammatories. She should follow-up with her primary care provider 2 to 3 days if she is not improved. - Vital Signs Vital signs: Temp Pulse Resp BP Pulse Ox 97.7 F 78 20 126/78 H 100 04/16/20 11:59 04/16/20 11:59 04/16/20 11:59 04/16/20 11:59 04/16/20 11:59 - Laboratory Results Result Diagrams: 04/16/20 13:15 04/16/20 13:15 Laboratory Results Interpreted: 04/16/20 04/16/20 04/16/20 13:15 13:15 13:15 WBC 11.2 H RDW 14.8 H Glucose 122 H Total Protein 8.6 H Ur Leukocyte Esterase LARGE H Critical Laboratory Results Reviewed: No Critical Results - Radiology Results Critical Radiology Results Reviewed: No Critical Results Discharge - Discharge Clinical Impression: Acute lumbar myofascial strain Qualifiers: Encounter type: initial encounter Qualified Code(s): S39.012A - Strain of muscle, fascia and tendon of lower back, initial encounter Condition: Stable Disposition: HOME, SELF-CARE Instructions: Low Back Pain ([facility]) Additional Instructions: Prescriptions for an anti-inflammatory and a muscle relaxant have been sent to your pharmacy in [place]. Please pick these up and take them according to label directions. Expect that your back pain is going to take several days to resolve. It should gradually get better. You should follow-up with your primary care provider in 2 to 3 days for recheck. Please call for an appointment. Return to the emergency department immediately for reevaluation if you have difficulty urinating, difficulty controlling your bowels, or if you develop weakness or a foot drop in either leg. Return if any other concerning symptoms develop. Prescriptions: Cyclobenzaprine HCl [Flexeril 10 mg Tablet] 10 mg PO TIDP PRN #15 tab PRN Reason: Naproxen 500 mg PO BID #20 tablet Hydrocodone/Acetaminophen [[place] 5-325 mg Tablet] 1 tab PO Q6H PRN #12 tablet PRN Reason: Pain Referrals: CHASE GUILLEN, PMHNP-BC [NO LOCAL MD] - Follow up as needed
[2020-04-16 18:11] VITALS: BP 132/83
== END 2020-04-16 17:38 | disposition home or self-care (01) ==
LOC: ER 11:53
DX: S39.012A Strain of muscle, fascia and tendon of lower back, initial encounter (principal); R10.31 Right lower quadrant pain; X50.9XXA Other and unspecified overexertion or strenuous movements or postures, initial encounter; E78.00 Pure hypercholesterolemia, unspecified; E11.9 Type 2 diabetes mellitus without complications; Z90.49 Acquired absence of other specified parts of digestive tract
CPT/HCPCS: 99285; 96372; 36415; 84702; 85025; 80053; 81001; 76770; 76830; J3490 ×2; J1885